=== PATIENT | female | born 1960 | race Caucasian/White ===

== ENCOUNTER → 2017-11-14 09:55 | Outpatient (CLI) | payer OTHER, MEDICAID, SELFPAY ==
--- NOTE | 2017-11-14 10:25 | DI.CT.S_ITS ---
PROCEDURE: CT CHEST ABD PEL W CON INDICATIONS: Restaging left breast cancer TECHNIQUE: After the administration of oral and intravenous contrast, 5 mm thick sections acquired from the lung apices to the symphysis. 5 mm coronal and sagittal reformats were performed, with additional 7 mm coronal MIP reformats through the lungs. For radiation dose reduction, the following was used: automated exposure control, adjustment of mA and/or kV according to patient size. COMPARISON: [facility], CT, CHEST/ABD/PEL WITH CONTRAST, 09/03/2017, 12:21. [facility], CT, CHEST/ABD/PEL WITH CONTRAST, 05/23/2017, 12:20. [facility], CT, CHEST/ABD/PEL WITH CONTRAST, 03/20/2017, 11:02. FINDINGS: Image quality: Excellent. CHEST: Lungs and pleura: No acute airspace opacities. Several small areas of linear stranding appear present at each lung base, but no pulmonary metastatic disease is found. No pleural effusions or pneumothorax. Central and peripheral airways appear patent and normal in caliber. Mediastinum: Heart size is normal. No pericardial effusion. No mediastinal or hilar adenopathy by size criteria. Thoracic aorta and central pulmonary arteries are normal in size. Esophagus is normal in caliber. No hiatal hernia. Chest wall: No axillary or supraclavicular adenopathy by size criteria. Thyroid gland appears normal where well visualized. Mild soft tissue prominence adjacent to the presumed surgical or biopsy clip at the left breast has diminished, and no additional suspected site of breast carcinoma is found. The soft tissue prominence measures 1.2 x 2.7 cm on the current study. ABDOMEN: Solid organs: Liver is normal in size and enhancement. Gallbladder contains multiple stones, filling the gallbladder lumen but without acute cholecystitis or biliary obstruction. Biliary system is non dilated. Pancreas enhances normally. Spleen is normal in size and enhancement. No adrenal nodules. Kidneys demonstrate normal size and enhancement, without hydronephrosis. Peritoneum and bowel: Bowel loops demonstrate normal wall thickness and caliber. No free fluid or air. Nodes and vessels: No mesenteric adenopathy by size criteria. The retroperitoneal adenopathy identified during CT scanning 09/03/17 remains but definitely diminished in size to a small degree along the para-aortic retroperitoneum. For example, the largest right periaortic node that previously measured 1.9 cm AP and 1.6 cm transverse, and now measures 1.6 cm AP and 1.3 cm transverse at the same areas. This pattern of improvement of adenopathy extends through the abdomen into the pelvis and along the left iliac node chain. No enlarging or new note is found. Aorta and inferior vena cava are normal in size. Miscellaneous: No ventral hernias. PELVIS: Genitourinary: Bladder wall thickness is normal. Miscellaneous: No inguinal hernias or adenopathy. Bones: No suspicious bony lesions. No vertebral body compression fractures. IMPRESSION: Definite interval improvement in mild adenopathy along the retroperitoneal lymph node chains extending into the pelvis, and along the iliac node chains. No new area of adenopathy has developed. No additional area of metastatic disease is suspected. Resolution of mild edema pattern surrounding an area of presumed mass with central biopsy clip within, left breast. Alternatively, the radiodensity seen could represent scarring. Dictated by: Chester Morales M.D. on 11/14/2017 at 12:53 Approved by: Chester Morales M.D. on 11/14/2017 at 13:01
== END ==
PROVIDERS: Family Provider Physician Assistant; PCP Physician Assistant; Visit Provider Internal Medicine Hematology & Oncology
DX: C50.912 Malignant neoplasm of unspecified site of left female breast (principal)
CPT/HCPCS: 71260; 74177; 77080; Q9967

== ENCOUNTER → 2017-11-21 09:42 | Outpatient (CLI) | payer OTHER, MEDICAID, SELFPAY ==
--- NOTE | 2017-11-21 09:44 | DI.MRI.S_ITS ---
BREAST MRI OF BOTH BREASTS : 11/21/2017 CLINICAL: Breast and endometrial cancer. Comparison is made to exams dated: 03/18/2017 breast MRI - [facility], 02/20/2017 mammogram, and 01/12/2016 mammogram - [facility]. Informed consent was obtained from the patient. Axial T1, T2, and pre and post contrast T1 images were obtained. There is a 2.4 cm x 2 cm x 1.2 cm irregular mass with a spiculated margin in the left breast at 6 o'clock middle depth. This abnormality is decreased in size. It enhances significantly less than on the previous examination. There is no abnormal enhancement, masses, or areas of distortion in the right breast. There is a new right sided portacatheter. Left axillary and axillary tail lymph nodes are significantly improved. IMPRESSION: KNOWN BIOPSY PROVEN MALIGNANCY 1. The 2.4 cm x 2 cm x 1.2 cm irregular mass in the left breast is a known biopsy positive for malignancy. It enhances significantly less and is slightly smaller than on the previous study consistent with positive response to treatment. 2. Left axillary and axillary tail lymph nodes are significantly improved. 3. No MRI evidence of right breast malignancy. This exam was interpreted at Station ID: [id number]. Electronically Signed By: Rush Cruz M.D. cj/:11/22/2017 12:16:40 copy to: Denise Braxton copy to: HEATHER MOMIN BI-RADS Category 6: Known biopsy proven malignancy [id number]
--- NOTE | 2018-01-27 11:24 | ONC.NAV ---
Description: T/C Activity: Left pt a message re: scheduling appt. with an oncologist as well as responding to her need to look over some of her insurance forms. Requested return call.
--- NOTE | 2018-01-28 12:56 | ONC.NAV ---
Description: T/C re: temporary transfer of care Activity: Called pt to discuss her questions re: changing from Medicaid to SSI/Healthcare exchange. Discussed coordination of her scheduling for her next Oncologist appointment, and explained that we can not take her [employer] insurance right now until our providers are fully credentialed, and that this [employer] BACKING STENCILER can assist with coordinating her to visit Dr. Shaw at [facility] for her surgery post-op provider appt. Explained also that we will call her as soon as Dr. Shaw is credentialed to accept her insurance here, and will then transfer her care back to us. She expressed understanding, and was okay with this plan.
== END ==
PROVIDERS: Family Provider Physician Assistant; PCP Physician Assistant; Visit Provider Internal Medicine Hematology & Oncology
DX: C50.912 Malignant neoplasm of unspecified site of left female breast (principal); C54.1 Malignant neoplasm of endometrium
CPT/HCPCS: 96523; A9579; C8908

== ENCOUNTER 2018-01-01 07:53 | Day surgery (SDC) | payer OTHER, MEDICAID, SELFPAY ==
[2017-12-17 10:57] VITALS: BMI 29.2
--- NOTE | 2018-01-01 | PATH_ITS ---
[facility] Accession Number: [id number] . 01 Material submitted: . PART A: LEFT AXILLARY CONTENTS PART B: LEFT BREAST MASS . 02 Diagnosis: A. Left Axillary Contents, Dissection: One of nine lymph nodes positive for metastatic carcinoma (06/25). . B. Left Breast Mass: Invasive carcinoma of the breast. Please see comment. . CAP CANCER CASE SUMMARY . Procedure: Left breast lumpectomy and axillary dissection following needle localization. Lymph node sampling: Axillary dissection (submitted as part A). Specimen Laterality: Left. . Tumor site: Tumor is present in the lower outer quadrant of the left breast (5 o'clock per the previous biopsy report ([facility] [id number])). Tumor size: 3.4 cm. Histologic type: Infiltrating ductal carcinoma. Histologic grade: Empire histologic score 9 of 9. Glandular/Tubular differentiation: Score 3 of 3. Nuclear Pleomorphism: Score 3 of 3. Mitotic Rate: Score 3 of 3. Overall Grade: Grade 3 of 3. Tumor focality: Unifocal. Ductal carcinoma in situ: Present. Size (Extent) of DCIS: Approximately 12 mm (slices 10, 11, and 12). Architectural patterns: Comedocarcinoma. Nuclear grade: High grade (3 of 3). Necrosis: Present. Lobular carcinoma in situ: Not identified. . Macroscopic and microscopic extent of tumor Skin: Not applicable. Nipple: Not applicable. Skeletal muscle: Not applicable. . Margins Invasive carcinoma: Anterior: 1 mm. Posterior: 11 mm. Superior: Greater than 10 mm. Inferior: 7 mm. Medial: Greater than 10 mm. Lateral: Greater than 10 mm. Ductal carcinoma in situ: Anterior: 8 mm. Posterior: 8 mm. Superior: Greater than 10 mm. Inferior: Greater than 10 mm. Medial: Greater than 10 mm. Lateral: Greater than 10 mm. . Lymph nodes Total number of lymph nodes examined: 9. Number of sentinel lymph nodes examined: 0. . Lymph Node Involvement: Number of lymph nodes with macrometastases: 1. Number of lymph nodes with micrometastases: Not applicable. Number of lymph nodes with isolated tumor cells: Not applicable. Extranodal Extension: Present over a region of 2 mm. Method of Evaluation of [place] Lymph Nodes: Not applicable. . . Treatment effect: Response to Presurgical Therapy Breast: Not definitively identified. Lymph nodes: Not definitively identified. . Lymph-vascular invasion: Not definitively identified. Dermal lymph-vascular invasion: Not applicable. Pathologic staging: AJCC, 8th ed., 2017 Primary tumor: pT2 Regional lymph nodes: pN1a . Additional pathologic findings: Specify: Perineural involvement present; changes consistent with previous instrumentation are present. . Ancillary studies: Performed on this patient's previous needle core biopsy ([facility], [id number]; 02/27/2017) and demonstrate the following by written report: Estrogen Receptor (ER) Status: Positive (10%, weak, 1+). Progesterone Receptor (PgR) Status: Positive (weak, 1+, 5%). HER2 (by immunohistochemistry): Negative (1+, faint cytoplasmic and membrane positivity in about 20% of cells). HER2 (ERBB2) (by in situ hybridization): Not applicable. MRV/01/06/2018 . 02 Comment: This patient's previous left breast needle core biopsy ( [facility] [id number]) demonstrates immunohistochemistry findings consistent with primary breast carcinoma (cdx2 and PAX8 negative, GATA3 positive) per [facility] report [id number]. The presence of a concurrent endometrial primary tumor is noted. . 02 Electronically signed: . Maxine Clayton MD, Pathologist NPI- [id number] . 01 Gross description: . (A) Received in formalin, labeled left axillary content, is a piece of gerardo-yellow, rubbery adipose tissue (8.0 x 6.0 x 2.2 cm) containing multiple possible lymph nodes (0.1 x 0.1 x 0.1 cm - 1.8 x 1.5 x 0.8 cm). Section code: (A1, A2) multiple intact lymph nodes; (A3-A5) one bisected lymph node in each cassette; (A6-A7) one lymph node, serially sectioned. (B) Received in formalin, labeled left breast mass, short superior, long lateral, wire anterior, is a piece of breast tissue (3.3 cm AP, 5.9 cm SI, 9.5 cm ML) with no overlying skin. The specimen is oriented with 2 black sutures (short - superior, long-lateral) and the wire is anterior. The specimen is serially sectioned ML into 28 slices with the medial and lateral resection margins as slices #1 and #28, respectively. A gerardo-white, solid, firm irregular mass (3.4 x 1.6 x 1.5 cm) is identified in slices #6-#15. The localization wire ends adjacent to the mass in slice #15. The mass is less than 0.1 cm from the anterior, 1.1 cm from the posterior, 1.9 cm from the superior, 0.7 cm from the inferior, 1.7 cm from the medial, and 4.4 cm from the lateral resection margins. A focally hemorrhagic area (1.1 x 1.0 x 0.6 cm) is located 0.3 cm from the mass within slices #8-#10. No biopsy marker is identified. The remaining breast tissue is fatty, with no other nodules, masses or lesions identified. Ink code: purple-anterior; yellow-posterior; black-superior; orange-inferior; green-medial; blue-lateral. Section code: (B1) medial resection margin, perpendicularly sectioned, sales representative graphic art; (B2) slice #4, bisected SI, superior half submitted; (B3-B4) slice #5, tissue adjacent to mass, bisected and entirely submitted SI; (B5) slice #6, bisected SI, inferior half submitted; (B6) slice #7, bisected SI, inferior half submitted; (B7) slice #8, bisected SI, inferior half submitted; (B8-B10) slice #9, trisected and entirely submitted SI; (B11-B12) slice # 10, trisected SI, inferior two-thirds submitted; (B13-B14) slice #11, trisected SI, inferior two-thirds submitted; (B15) slice #12, sales representative graphic art; (B16) slice #13, sales representative graphic art, (B17-B18) slice #14,trisected SI, superior two-thirds submitted; (B19) slice #15, sales representative graphic art; (B20-B22) slice #16, tissue adjacent to mass, trisected and entirely submitted SI; (B23) slice # 22, sales representative graphic art; (B24) lateral resection margin, perpendicularly sectioned, sales representative graphic art. Note: Approximate total fixation time in formalin - 69 hours 30 minutes, calculated using the collection day of 01/01/2018 with no collection time given. (JM:mlo [id number]) /OZO . 02 Pathologist provided ICD-10: C50.912 . 02 CPT . 347884, [id number] Performed at: 01 [facility] [address] [place] [address], [place], [place] [id number] MD Martell Dorsey MD Phone: [phone] Performed at: 02 [facility] [address] [place], [place] [id number] MD Mane Moore MD Phone: [phone]
--- NOTE | 2018-01-01 07:32 | DI.MG.S_ITS ---
MAMMOGRAPHY GUIDED WIRE LOCALIZATION LEFT BREAST WITH POST MAMMOGRAPHIC IMAGING AND RADIOGRAPHIC SPECIMEN IMAGIN01/01/2018 CLINICAL: Left breast cancer. Correlation is made to exams dated: 11/21/2017 breast MRI, 03/18/2017 breast MRI - [facility], 02/27/2017 ultrasound biopsy, and 02/20/2017 mammogram - [facility]. A wire localization using mammography guidance was performed for the palpable oval mass located in the left breast at 6 o'clock middle depth. This was described on the previous mammography report. The skin was prepped in the usual manner. Local anesthetic was administered to the access site. The localization was approached from the lateral aspect. A J-hook wire was inserted adjacent to the marker under mammography guidance. A sterile dressing was applied to the access site. Post placement mammographic imaging demonstrates the tip demarcates the boundaries adjacent to the marker. IMPRESSION: WIRE LOCALIZATION Wire localization for the mass in the left breast at 6 o'clock middle depth was successful. The imaged specimen includes the lesion, a biopsy clip, and the distal portion of the localization wire. A specimen radiograph is recommended. This exam was interpreted at Station ID: [id number]. Chester Morales M.D. [facility]/:01/01/2018 17:19:46 copy to: Denise Braxton copy to: HEATHER SUNSHINE
--- NOTE | 2018-01-01 07:32 | DI.MG.S_ITS ---
SPECIMEN LEFT BREAST: 01/01/2018 CLINICAL: Breast specimen. Correlation is made to exam dated: 01/01/2018 [facility]. A surgical specimen was imaged for the concerning oval mass located in the left breast at 6 o'clock middle depth. This was described on the previous mammography report. IMPRESSION: SPECIMEN The imaged specimen includes the lesion, a biopsy clip, and the distal portion of the localization wire. Waiting for pathology results. A final report will be issued when these become available. This exam was interpreted at Station ID: [id number]. Chester Morales M.D. tracy/maria dolores:01/01/2018 17:21:17 copy to: Denise Braxton copy to: HEATHER SUNSHINE
--- NOTE | 2018-01-01 08:16 | SUR.PREOP ---
PT LEFT SURGICAL AREA TO RADIOLOGY IN STABLE CONDITION AT THIS TIME.
--- NOTE | 2018-01-01 09:08 | SUR.PREOP ---
PT RETURNED FROM RADIOLOGY AT THIS TIME. PT IN STABLE CONDITION. CUP OVER NEEDLE LOC SITE.
[2018-01-01 09:19] VITALS: BP 129/85; PULSE 79; RESP 15; TEMP 36.3; O2SAT 100; BMI 31.0
--- NOTE | 2018-01-01 09:37 | SUR.PREOP ---
PT POWER PORT ACCESSED ON RIGHT CHEST PER POLICY. GOOD BLOOD RETURN AND EASILY FLUSHED. PT TOLERATED WELL. FLUIDS RUNNING AT THIS TIME WITHOUT ANY DIFFICULTLY. NEEDLE 20G x 0.75 IN.
[2018-01-01] MEDS: LACTATED RINGERS 1,000 ML 42 ML IV ×2 (09:52→11:19)
--- NOTE | 2018-01-01 10:21 | PM.PREOP ---
Pre-operative Note Interval Note Pre-op Check: Yes History & Physical Reviewed by Physician Changes: No
--- NOTE | 2018-01-01 11:11 | SUR.OPER ---
Supine on padded OR bed, head on pillow, arms secured on padded arm boards at <90 degrees abduction, legs uncrossed, safety belt at thigh, tape over blanket over lower legs.
[2018-01-01] MEDS: LIDOCAINE 1% W/EPI INJ 20 ML INJ (11:17)
[2018-01-01] MEDS: BUPIVACAINE 0.5% (PF) 30 ML VIAL INJ (11:18)
--- NOTE | 2018-01-01 11:42 | P.OP_ITS ---
Operative Date/Time/Diagnoses Date of procedure: 01/01/18 Time of procedure: 11:37 Pre-op diagnosis: Biopsy-proven locally advanced left breast cancer Post-op diagnosis: same Procedure & Clinicians Procedure: Left breast lumpectomy and axillary dissection following needle localization Same procedure as scheduled: Yes Indications: Locally advanced breast cancer with a biopsy-positive left axillary node in the setting of advanced endometrial cancer Surgeon: Vivian Braxton Click Yes if Unassisted: Yes Anesthesia Type: General (Ahsaei) and Local Operative Notes Findings: 1. Multiple palpably enlarged axillary nodes in levels 1, 2, and 3 of the left axilla 2. Mass and clip contained centrally within the specimen. 3. A very tiny amount of tissue covers the mass posteriorly. There is a very narrow plane between the posterior edge of the mass and the pectoralis muscle Closure Type: primary Specimen(s): other (1. Left axillary contents, 2. left breast mass) Estimated Blood Loss (mL): 20 Procedure in detail: After obtaining informed consent, the patient was brought to the operating room and placed in the supine position on the operating table. Following successful induction of general endotracheal anesthesia, appropriate padding of all bony prominences, and placement of appropriate monitors, the left breast and axilla were prepped and draped in a standard surgical fashion. A timeout was held per SCOAP protocol. Following injection of mixture of local anesthetics into the axillary fold on the left side, an incision was created and carried down through the skin and subcutaneous tissue to enter the axillary fat pad below. The axillary node packet was then dissected free from underlying muscle and overlying skin. This was carried superiorly to the axillary vein but the vein was not skeletonized. All afferent and efferent lymphatics and vasculature were addressed with clips prior to division. The limit of dissection anteriorly was the pectoralis muscle and posteriorly was the latissimus muscle. All palpably enlarged nodes were included within the specimen. The wound was checked for hemostasis and irrigated with warm water. It was closed in 2 layers with Vicryl and Monocryl suture. We continued with lumpectomy on the left side. A curvilinear incision was created to include the wire on the left side. Using traction and counter- traction, the mass and localizing wire carefully dissected free from the overlying skin, underlying muscle, and surrounding breast tissue. The mass was delivered into the field and marked appropriately. It was sent for specimen x- ray. The wound was checked for hemostasis and irrigated with water. The radiologist called back into the room noting that the specimen x-ray contained the wire clip and mass. The wound was checked once again for hemostasis. It was irrigated copiously with warm water and aspirated free of all fluid. The wound was checked once again for hemostasis and then closed in 2 layers with Vicryl Monocryl suture. Dermabond was applied to the skin incisions. Fluffs and a breast binder were applied. The patient tolerated the procedure very well. She was allowed awaken from anesthesia and taken to the post-anesthesia care unit in good condition. Complications: none Condition: stable Disposition: PACU Plan for aftercare: 1. Discharge to home 2. Follow up with me in 2 weeks
[2018-01-01 11:50] VITALS: BP 114/77; PULSE 79; RESP 18; TEMP 36.2; O2SAT 98
[2018-01-01 11:55] VITALS: BP 122/74; PULSE 95; RESP 18; O2SAT 95
[2018-01-01 12:00] VITALS: BP 108/71; PULSE 93; RESP 12; O2SAT 95
[2018-01-01] MEDS: OXYCODONE/ACETAMINOPHEN 5/325 TABLET 1 TAB PO ×2 (12:02→12:58)
[2018-01-01 12:11] VITALS: BP 127/73; PULSE 94; RESP 17; TEMP 35.9; O2SAT 95
--- NOTE | 2018-01-01 13:02 | SUR.PHASEII ---
Addendum entered by Sara Betancur R.N. 01/01/18 13:16: Flushed Port per policy prior to de-access. Flushed easily, pt tolerated well. Original Note: Pt's Port-A-Cath deaccessed, no issues, bandage applied.
[2018-01-01 13:04] VITALS: BP 127/83; PULSE 82; RESP 16; TEMP 36.1; O2SAT 99
--- NOTE | 2018-02-04 14:36 | PM.HP.1 ---
History of Present Illness Date Patient Seen: 01/01/18 Time Patient Seen: 10:36 Chief complaint: needle loc axillary dissection [id number] Narrative: Very pleasant 58-year-old lady admitted today with left breast cancer. She is scheduled to undergo a left breast lumpectomy after needle localization. Because she had locally advanced disease she will require an axillary dissection. We have discussed all of this prior to today's planned procedure. She reports she is feeling reasonably well today. She has no complaints. Patient History Medical History Anxiety (Acute) Cataracts, bilateral (Acute) Cholelithiasis (Acute) Chronic headaches (Acute) Compression fracture of body of thoracic vertebra (Acute) Hypertension (Acute) Osteopenia (Acute) Second hand smoke exposure (Acute) Surgical History Status post hysterectomy with oophorectomy (04/24/17) Family & Social History Family History: Reviewed 02/04/18 by Vivian Braxton MD Social History: household members significant other Meds Home Medications Medication Instructions Recorded Confirmed Type [COQ-10] 100 mg PO Q DAY #0 03/14/17 01/01/18 History [TUMERIC] Q DAY #0 03/14/17 History magnesium 200 mg PO Q DAY #0 03/14/17 01/01/18 History multivitamin [Multiple Vitamins] 1 tab PO QDAY #0 03/14/17 01/01/18 History [PAPAYA ENZYME] PO QDAY #0 04/16/17 History [TURKEY TAIL MUSHROOM] PO QDAY #0 04/16/17 History acetaminophen [Tylenol] 650 mg PO Q6H PRN #0 07/18/17 01/01/18 History ibuprofen 400 mg PO PRN PRN #0 07/18/17 12/17/17 History lisinopril 20 mg tablet 20 mg PO QDAY #90 tab 11/29/17 01/01/18 Rx letrozole 2.5 mg tablet 2.5 mg PO DAILY 12/02/17 01/01/18 History probiotic PO DAILY 12/02/17 12/02/17 History acetaminophen [Tylenol Extra 500 mg PO Q6H PRN 12/17/17 12/17/17 History Strength] levothyroxine [Synthroid] 150 mcg PO DAILY 12/27/17 01/01/18 History lorazepam 0.5 mg PO Q OTHER DAY PRN 12/27/17 01/01/18 History Allergies Allergy/AdvReac Type Severity Reaction Status Date / Time No Known Drug Allergies Allergy Verified 01/01/18 08:12 Review of Systems Review of Systems All systems reviewed & are unremarkable except as noted in HPI and below Exam Vital Signs (past 8 hours): Oxygen Delivery Method Room Air Narrative Exam Narrative: Very pleasant lady in no obvious distress HEENT: Normocephalic and atraumatic, pupils equal round reactive to light accommodation with anicteric sclera Lungs: Clear bilaterally Heart: Regular rate and rhythm without murmur or gallop Breast: Fairly symmetrical bilaterally. There is a wire covered with a cup protruding from her left breast Abdomen: Soft, nontender, active bowel sounds. Incision is healing well. Extremities: Warm and well perfused without edema Assessment & Plan Plan: Assessment/Plan Narrative: Very pleasant lady with locally advanced left breast cancer in the setting of a very aggressive metastatic endometrial cancer. We discussed the risks and benefits of left breast lumpectomy and axillary dissection and she has expressed an understanding of the procedure and a desire to complete it today
== END 2018-01-01 13:22 ==
LOC: OR 08:00
PROVIDERS: PCP Family Medicine; Visit Provider Surgery
PROC: (CPT 19302; principal; 2018-01-01 10:00)
DX: C50.912 Malignant neoplasm of unspecified site of left female breast (principal); Z17.0 Estrogen receptor positive status [ER+]; F41.9 Anxiety disorder, unspecified; I10 Essential (primary) hypertension
CPT/HCPCS: 19302; 19281; 76098; J1100; J2405; J2704; J3010

== ENCOUNTER → 2018-03-18 10:37 | Outpatient (CLI) | payer OTHER, MEDICAID, SELFPAY ==
[2018-03-18 11:29] LABS: Add Manual Diff / Slide Review NO; Basophils Percent Auto 0.3 % (0-2); Eosinophils Percent Auto 3.4 % (2-4); Hematocrit 37.4 % (36-46); Lymphocytes Percent Auto 14.3 % (25-40); Mean Corpuscular HGB Conc 34.8 % (30-36); Mean Corpuscular Hemoglobin 31.9 PG (26-34); Mean Corpuscular Volume 91.7 fL (80-100); Monocytes Percent Auto 9.9 % (3-14); Neutrophils Absolute Auto 3800 /uL (3000-5900); Neutrophils Percent Auto 72.1 % (50-75); Platelet Count 209 X10^3/uL (150-400); Red Blood Cell Count 4.08 X10^6/uL (4.0-5.2); Red Cell Distribution Width 12.3 % (11.6-14.8); White Blood Cell Count 5.2 X10^3/uL (4.5-11.0)
[2018-03-18 11:33] LABS: Alanine Aminotransferase 33 IU/L (9-52); Albumin 4.6 g/dL (3.5-5.0); Albumin Globulin Ratio 1.4 (1.0-2.8); Alkaline Phosphatase 76 U/L (38-126); Aspartate Aminotransferase 24 IU/L (14-36); BUN Creatinine Ratio 27.8 (6-22); Bilirubin Total 0.6 mg/dL (0.2-1.3); Blood Urea Nitrogen 25 mg/dL (7-17); Calcium 10.2 mg/dL (8.4-10.2); Carbon Dioxide 32 mmol/L (22-32); Chloride 102 mmol/L (98-107); Cholesterol 302 mg/dL (140-199); Estimated Glomerular Filt Rate > 60.0 mL/min (>60); Globulin 3.2 g/dL (1.7-4.1); Glucose 93 mg/dL (70-100); HDL Cholesterol 46 mg/dL (40-60); HEMOLYSIS < 15 (0-50); LDL Cholesterol Calculated 197 mg/dL (<100); Potassium 4.5 mmol/L (3.4-5.1); Sodium 144 mmol/L (137-145); Total Protein 7.8 g/dL (6.3-8.2); Triglycerides 294 mg/dL (35-150)
[2018-03-18 12:35] LABS: TSH w/ Reflex to FT4 1.01 uIU/mL (0.47-4.68)
--- NOTE | 2018-03-31 14:57 | ONC.NAV ---
Description: T/C re: transfer plan Activity: Called and left pt a voicemail re: what her plan is re: transferring care back to [place]. Dr. Gonzalez is credentialed with her insurance, however Dr. Shaw is not. Requested a return call.
== END ==
PROVIDERS: PCP Family Medicine; Visit Provider Nurse Practitioner Family
DX: I10 Essential (primary) hypertension (principal)
CPT/HCPCS: 36415; 80053; 80061; 84443; 85025

== ENCOUNTER → 2018-06-23 11:33 | Outpatient (CLI) | payer OTHER, MEDICAID, SELFPAY ==
--- NOTE | 2018-06-23 12:50 | DI.CT.S_ITS ---
PROCEDURE: CT CHEST ABD PEL W CON INDICATIONS: surveillance. History of metastatic endometrial carcinoma. Breast cancer. TECHNIQUE: After the administration of oral and intravenous contrast, 5 mm thick sections acquired from the lung apices to the symphysis. 5 mm coronal and sagittal reformats were performed, with additional 7 mm coronal MIP reformats through the lungs. For radiation dose reduction, the following was used: automated exposure control, adjustment of mA and/or kV according to patient size. COMPARISON: [facility], CT, CT CHEST ABD PEL W CON, 11/14/2017, 10:59. [facility], CT, CT CHEST ABDOMEN PELVIS WITH CONTRAST, 03/07/2018, 15:42. FINDINGS: Image quality: Excellent. CHEST: Lungs and pleura: No acute airspace opacities. No pleural effusions or pneumothorax. Central and peripheral airways appear patent and normal in caliber. Mediastinum: Heart size is normal. No pericardial effusion. No mediastinal or hilar adenopathy by size criteria. Thoracic aorta and central pulmonary arteries are normal in size. Esophagus is normal in caliber. No hiatal hernia. Chest wall: Right chest wall Port-A-Cath tip is in SVC. Postsurgical changes are noted in the left axilla and left breast region. Previously described 2.4 x 5.3 cm old old seroma/hematoma at left breast lumpectomy site now measures 2.7 x 4 cm in size. Left breast skin thickening is also seen. Previously described 8mm left axillary lymph node is unchanged in size and appearance. Small amount of hematoma/seroma in left axilla adjacent to surgical clips are again seen and unchanged. No new axillary or supraclavicular adenopathy by size criteria. Thyroid gland is unremarkable. ABDOMEN: Solid organs: Liver is normal in size and enhancement. There is mild hepatic steatosis. Gallbladder contains multiple calcified stones.. Biliary system is non dilated. Pancreas enhances normally. Spleen is normal in size and enhancement. No adrenal nodules. Kidneys demonstrate normal size and enhancement, without hydronephrosis. Peritoneum and bowel: Bowel loops demonstrate normal wall thickness and caliber. No free fluid or air. Sigmoid diverticulosis is seen, no evidence of acute diverticulitis. Nodes and vessels: No retroperitoneal or mesenteric adenopathy by size criteria. A few small retroperitoneal lymph nodes are seen and measures up to 6-7 mm in size in right retroperitoneal space. 7 mm left iliac lymph node is also seen. Aorta and inferior vena cava are normal in size. Miscellaneous: No ventral hernias. PELVIS: Genitourinary: Bladder wall thickness is normal. Miscellaneous: No inguinal hernias or adenopathy. Small lymph nodes are seen in bilateral inguinal region measures up to 8 mm in short axis diameter. Previously described right common iliac lymph node measures 10-11 mm in maximum short axis diameter now measures up to 7 mm in size. Bones: No suspicious bony lesions. No vertebral body compression fractures. IMPRESSION: 1. Interval further decrease in size of patient's known mildly enlarged lymph nodes in retroperitoneum and pelvis as described above. 2. Interval decrease in size of patient's known seroma/hematoma in left breast lumpectomy site. Stable small left axillary lymph node and post surgical changes in left axilla. Dictated by: Kd Levine M.D. on 06/23/2018 at 14:09 Approved by: Kd Levine M.D. on 06/23/2018 at 16:33
== END ==
PROVIDERS: Family Provider Internal Medicine Hematology & Oncology; Visit Provider Internal Medicine Hematology & Oncology
DX: C50.912 Malignant neoplasm of unspecified site of left female breast (principal); C54.1 Malignant neoplasm of endometrium; C78.00 Secondary malignant neoplasm of unspecified lung; R59.0 Localized enlarged lymph nodes; N64.89 Other specified disorders of breast
CPT/HCPCS: 36592; 71260; 74177; 80053; Q9967

== ENCOUNTER → 2018-08-11 11:09 | Outpatient (CLI) | payer OTHER, MEDICAID, SELFPAY ==
--- NOTE | 2018-08-11 11:14 | DI.US.S_ITS ---
ULTRASOUND OF LEFT BREAST: 08/11/2018 CLINICAL: Focal left breast tenderness inferior and lateral to lumpectomy site for 1 month. Comparison is made to exams dated: 01/01/2018 specimen, 01/01/2018 localization, 11/21/2017 breast MRI, 03/18/2017 breast MRI - [facility], 02/27/2017 ultrasound biopsy, and 02/20/2017 mammogram - [facility]. Ultrasound of the left breast was performed on the area of interest. Webster scale images of the real-time examination were reviewed. IMPRESSION: NEGATIVE There is no sonographic evidence of malignancy. There is no sonographic abnormality seen in the left breast to correspond with the pain, however, clinical followup is recommended. Additionally, mammogram is recomended when the patient can tolerate compression. This exam was interpreted at Station ID: [id number]. Electronically Signed By: Denise Deleon M.D. lk/:08/11/2018 17:27:47 copy to: [facility] SUNSHINE letter sent: Clinical Evaluation Ultrasound BI-RADS: 1 Negative
--- NOTE | 2018-08-11 11:14 | DI.RAD.S_ITS ---
PROCEDURE: XR RIBS LT 2V INDICATIONS: RIB PAIN TECHNIQUE: 2 views of the left ribs were acquired. COMPARISON: None. FINDINGS: Surgical changes and devices: Numerous surgical clips projecting left axilla Bones and chest wall: No fractures or dislocations. No suspicious bony lesions. Overlying soft tissues appear unremarkable. Mild acromioclavicular and glenohumeral joint degeneration. Lungs and pleura: The visualized lung appears clear. No pleural effusions or pneumothorax are visible. IMPRESSION: No fracture Dictated by: Jack Kumari M.D. on 08/11/2018 at 12:25 Approved by: Jack Kumari M.D. on 08/11/2018 at 12:27
== END ==
PROVIDERS: Family Provider Internal Medicine Hematology & Oncology; Visit Provider Surgery
DX: C50.912 Malignant neoplasm of unspecified site of left female breast (principal); R07.81 Pleurodynia
CPT/HCPCS: 71100; 76642

== ENCOUNTER → 2018-09-25 09:55 | Outpatient (CLI) | payer OTHER, MEDICAID, SELFPAY ==
--- NOTE | 2018-09-25 10:14 | DI.CT.S_ITS ---
PROCEDURE: CT CHEST ABD PEL W CON INDICATIONS: surveillance TECHNIQUE: After the administration of oral and intravenous contrast, 5 mm thick sections acquired from the lung apices to the symphysis. 5 mm coronal and sagittal reformats were performed, with additional 7 mm coronal MIP reformats through the lungs. For radiation dose reduction, the following was used: automated exposure control, adjustment of mA and/or kV according to patient size. COMPARISON: [facility], CT, CT CHEST ABD PEL W CON, 06/23/2018, 12:37. FINDINGS: Image quality: Excellent. CHEST: Lungs and pleura: No acute airspace opacities. No pleural effusions or pneumothorax. Central and peripheral airways appear patent and normal in caliber. Mediastinum: Heart size is normal. No pericardial effusion. No mediastinal or hilar adenopathy by size criteria. Thoracic aorta and central pulmonary arteries are normal in size. Esophagus is normal in caliber. No hiatal hernia. Chest wall: Right chest wall Port-A-Cath tip is in SVC unchanged from previous study. Post surgical changes are again noted in left axilla and left breast region. 2.8 x 4 cm seroma/hematoma at left breast lumpectomy site remains unchanged. Left breast skin thickening is again seen and unchanged. A patient's known 8mm left axillary lymph node now measures 7 mm in short axis diameter and is not significantly changed. No new axillary or supraclavicular lymphadenopathy is seen by size criteria. Thyroid gland is unremarkable. ABDOMEN: Solid organs: Liver is normal in size and enhancement. Gallbladder contains multiple calcified stones.. Biliary system is non dilated. Pancreas enhances normally. Spleen is normal in size and enhancement. No adrenal nodules. Kidneys demonstrate normal size and enhancement, without hydronephrosis. Peritoneum and bowel: Bowel loops demonstrate normal wall thickness and caliber. No free fluid or air. Nodes and vessels: No retroperitoneal or mesenteric adenopathy by size criteria. Aorta and inferior vena cava are normal in size. Miscellaneous: No ventral hernias. PELVIS: Genitourinary: Mild diffuse bladder wall thickening is seen, no discrete bladder wall mass is noted. Patient is status post hysterectomy. Miscellaneous: No inguinal hernias or adenopathy. Small lymph nodes in bilateral inguinal region are again seen, measures up to 7 mm in short axis diameter on the current study. Previously described 7 mm right common iliac lymph node is unchanged. Bones: No suspicious bony lesions. No vertebral body compression fractures. IMPRESSION: 1. No significant changes from previous study. Stable postsurgical changes in left chest wall and left axilla. Stable old seroma/hematoma in left breast lumpectomy site. Stable small left axillary lymph node. 2. Stable subcentimeter lymph nodes in retroperitoneum and pelvis. Dictated by: Kd Levine M.D. on 09/25/2018 at 12:27 Approved by: Kd Levine M.D. on 09/25/2018 at 12:37
== END ==
PROVIDERS: PCP Student in an Organized Health Care Education/Training Program; Visit Provider Internal Medicine Hematology & Oncology
DX: C34.90 Malignant neoplasm of unspecified part of unspecified bronchus or lung (principal); C54.1 Malignant neoplasm of endometrium
CPT/HCPCS: 71260; 74177; Q9967

== ENCOUNTER → 2018-12-29 09:53 | Outpatient (CLI) | payer OTHER, MEDICAID, SELFPAY ==
--- NOTE | 2018-12-29 10:26 | DI.CT.S_ITS ---
PROCEDURE: CT CHEST ABD PEL W CON INDICATIONS: Surveillance breast and endometrial cancer TECHNIQUE: After the administration of oral and intravenous contrast, 5 mm thick sections acquired from the lung apices to the symphysis. 5 mm coronal and sagittal reformats were performed, with additional 7 mm coronal MIP reformats through the lungs. For radiation dose reduction, the following was used: automated exposure control, adjustment of mA and/or kV according to patient size. COMPARISON: [facility], CT, CT CHEST ABD PEL W CON, 09/25/2018, 11:14. FINDINGS: Image quality: Excellent. CHEST: Lungs and pleura: Biapical scarring is seen. 4-5 mm nodular density in lateral aspect of left lower lobe is seen, not definitely noted on previous study series 2 image 187. 4 mm nodular density in anterior aspect of right middle lobe near right lung base is also noted not definitely seen on previous study series 2 image 202. No acute airspace opacities. No pleural effusions or pneumothorax. Central and peripheral airways appear patent and normal in caliber. Mediastinum: Heart size is normal. No pericardial effusion. No mediastinal or hilar adenopathy by size criteria. Thoracic aorta and central pulmonary arteries are normal in size. Esophagus is normal in caliber. No hiatal hernia. Chest wall: Right chest wall Port-A-Cath tip is in the SVC. Postsurgical changes from left breast lumpectomy with seroma/organized hematoma in left breast is again seen, now measures 4.3 x 3 cm in size, slightly increased in size compared to 2.8 x 4 cm on previous study. No axillary or supraclavicular adenopathy by size criteria. Previously described a 7 mm left axillary lymph node is grossly unchanged in size and appearance. Thyroid gland is within normal limits. ABDOMEN: Solid organs: Liver is normal in size and enhancement. Gallbladder contains multiple calcified stones unchanged from prior study.. Biliary system is non dilated. Pancreas enhances normally. Spleen is normal in size and enhancement. No adrenal nodules. Kidneys demonstrate normal size and enhancement, without hydronephrosis. Peritoneum and bowel: Bowel loops demonstrate normal wall thickness and caliber. No free fluid or air. Nodes and vessels: No retroperitoneal or mesenteric adenopathy by size criteria. Aorta and inferior vena cava are normal in size. Miscellaneous: No ventral hernias. PELVIS: Genitourinary: Bladder wall thickness is normal. Miscellaneous: No inguinal hernias or adenopathy. Bones: No suspicious bony lesions. No vertebral body compression fractures. IMPRESSION: 1. 4-5 mm nodular densities are seen in bilateral lower lung mccullough as described above, not definitively seen on previous CT study. Metastatic pulmonary nodules cannot be excluded. Suggest CT followup in 3-6 month. Biapical scarring. No pleural effusion or pneumothorax. Airways patent. 2. No lymphadenopathy is seen in chest, abdomen or pelvis by size criteria. 3. Interval slight increase in size of patient's known seroma/hematoma in the left breast from prior left breast lumpectomy. Dictated by: Kd Levine M.D. on 12/29/2018 at 15:29 Approved by: Kd Levine M.D. on 12/29/2018 at 15:36
== END ==
PROVIDERS: PCP Student in an Organized Health Care Education/Training Program; Visit Provider Internal Medicine Hematology & Oncology
DX: C50.912 Malignant neoplasm of unspecified site of left female breast (principal); C54.1 Malignant neoplasm of endometrium
CPT/HCPCS: 71260; 74177; Q9967

== ENCOUNTER → 2019-03-07 12:51 | Outpatient (CLI) | payer OTHER, MEDICAID, SELFPAY ==
--- NOTE | 2019-03-07 12:53 | DI.MG.S_ITS ---
BILATERAL DIGITAL SCREENING MAMMOGRAM 3D/2D WITH CAD: 03/07/2019 CLINICAL: Routine screening. Personal history of left breast cancer. Family history of breast cancer. Comparison is made to exams dated: 02/20/2017 mammogram, 01/12/2016 mammogram, and 07/21/2014 mammogram - [facility]. There are scattered fibroglandular elements in both breasts. Current study was also evaluated with a Computer Aided Detection (CAD) system. There are benign post operative findings in the left breast. No significant masses, calcifications, or other findings are seen in either breast. There has been no significant interval change. IMPRESSION: There is no mammographic evidence of malignancy. A 1 year screening mammogram is recommended. This exam was interpreted at Station ID: [id number]. NOTE: For mammograms, a report in lay terms will be sent to the patient. Approximately 15% of breast malignancies will not be visualized mammographically. In the management of a palpable breast mass, a negative mammogram must not discourage biopsy of a clinically suspicious lesion. Electronically Signed By: Denise huerta/maria dolores:03/09/2019 10:34:06 copy to: HEATH[facility] SUNSHINE letter sent: Normal Exam ACR BI-RADS Category 2: Benign Finding(s) 3342F
== END ==
PROVIDERS: Visit Provider Radiology Radiation Oncology
DX: Z12.31 Encounter for screening mammogram for malignant neoplasm of breast (principal); Z85.3 Personal history of malignant neoplasm of breast; Z80.3 Family history of malignant neoplasm of breast
CPT/HCPCS: 77063; 77067

== ENCOUNTER → 2019-03-30 10:48 | Outpatient (CLI) | payer OTHER, MEDICAID, SELFPAY ==
--- NOTE | 2019-03-30 11:59 | DI.CT.S_ITS ---
PROCEDURE: CT CHEST ABD PEL W CON INDICATIONS: BREAST CANCER, ENDOMET CA TECHNIQUE: After the administration of oral and intravenous contrast, 5 mm thick sections acquired from the lung apices to the symphysis. 5 mm coronal and sagittal reformats were performed, with additional 7 mm coronal MIP reformats through the lungs. For radiation dose reduction, the following was used: automated exposure control, adjustment of mA and/or kV according to patient size. COMPARISON: [facility], CT, CT CHEST ABD PEL W CON, 12/29/2018, 11:05. 03/07/2018, 12/29/2018. FINDINGS: Image quality: Excellent. CHEST: Lungs and pleura: A few scattered pulmonary nodules are stable since 12/29/2018. For example: -Right middle lobe, 4 mm, (7/189). -Left lower lobe, 4 mm, (7/175). No new or enlarging pulmonary nodules. Numerous pulmonary nodules were present on the CT 05/23/2017. No mass. No acute airspace opacities. No pleural effusions or pneumothorax. Central and peripheral airways appear patent and normal in caliber. Mediastinum: Heart size is normal. No pericardial effusion. No mediastinal or hilar adenopathy by size criteria. Thoracic aorta and central pulmonary arteries are normal in size. Esophagus is normal in caliber. No hiatal hernia. Chest wall: Similar small left breast neuroma measuring 4 cm, (2/33). Left axillary clips and scarring are unchanged. No axillary or supraclavicular adenopathy by size criteria. Thyroid gland is unremarkable. Right-sided port with the catheter tip in the upper SVC, unchanged. ABDOMEN: Solid organs: Liver is normal in size and enhancement. Gallbladder is nondistended. Multiple partially calcified gallstones. Biliary system is non dilated. Pancreas enhances normally. Spleen is normal in size and enhancement. No adrenal nodules. Kidneys demonstrate normal size and enhancement, without hydronephrosis. Peritoneum and bowel: Bowel loops demonstrate normal wall thickness and caliber. Mild diverticulosis. The apex is normal. No free fluid or air. Nodes and vessels: No retroperitoneal or mesenteric adenopathy by size criteria. No peritoneal nodularity. Aorta and inferior vena cava are normal in size. Miscellaneous: No ventral hernias. Lower, wall scar. PELVIS: Genitourinary: Bladder is unremarkable. The uterus is surgically absent. Miscellaneous: No inguinal hernias or adenopathy. Bones: No suspicious bony lesions. T9 compression fracture is unchanged. IMPRESSION: 1. A few small pulmonary nodules are stable. 2. No suspicious adenopathy. 3. No metastatic disease identified in the abdomen or pelvis. Dictated by: Mu Guevara M.D. on 03/30/2019 at 13:01 Approved by: Mu Guevara M.D. on 03/30/2019 at 13:17
== END ==
PROVIDERS: PCP Student in an Organized Health Care Education/Training Program; Visit Provider Internal Medicine Hematology & Oncology
DX: C50.912 Malignant neoplasm of unspecified site of left female breast (principal); C54.1 Malignant neoplasm of endometrium; R91.8 Other nonspecific abnormal finding of lung field
CPT/HCPCS: 71260; 74177; Q9967

== ENCOUNTER → 2019-07-13 13:38 | Outpatient (CLI) | payer OTHER, MEDICAID, SELFPAY ==
--- NOTE | 2019-07-13 13:57 | DI.CT.S_ITS ---
PROCEDURE: CT CHEST ABD PEL W CON INDICATIONS: breast ca, endometrium ca TECHNIQUE: After the administration of oral and intravenous contrast, 5 mm thick sections acquired from the lung apices to the symphysis. 5 mm coronal and sagittal reformats were performed, with additional 7 mm coronal MIP reformats through the lungs. For radiation dose reduction, the following was used: automated exposure control, adjustment of mA and/or kV according to patient size. COMPARISON: [facility], CT, CT CHEST ABD PEL W CON, 03/30/2019, 11:44. FINDINGS: Image quality: Excellent. CHEST: Lungs and pleura: No acute airspace opacities. No pleural effusions or pneumothorax. Central and peripheral airways appear patent and normal in caliber. Bilateral pulmonary nodules are unchanged compared to prior exam. No new nodules are identified. Mediastinum: Heart size is normal. No pericardial effusion. No mediastinal or hilar adenopathy by size criteria. Thoracic aorta and central pulmonary arteries are normal in size. Esophagus is normal in caliber. No hiatal hernia. Chest wall: No axillary or supraclavicular adenopathy by size criteria. Thyroid gland is unremarkable. Left breast mass is unremarkable. ABDOMEN: Solid organs: Liver is minimally prominent with steatosis. Gallbladder demonstrates multiple stones and sludge without wall thickening, unchanged. Biliary system is non dilated. Pancreas enhances normally. Spleen is normal in size and enhancement. No adrenal nodules. Kidneys demonstrate normal size and enhancement, without hydronephrosis. Peritoneum and bowel: Bowel loops demonstrate normal wall thickness and caliber. No free fluid or air. Scattered diverticula are present. Nodes and vessels: No retroperitoneal or mesenteric adenopathy by size criteria. Aorta and inferior vena cava are normal in size. Miscellaneous: No ventral hernias. PELVIS: Genitourinary: Bladder wall thickness is normal. Uterus has been removed. Miscellaneous: No inguinal hernias or adenopathy. Bones: No suspicious bony lesions. No vertebral body compression fractures. IMPRESSION: 1. Stable appearance of sub-centimeter bilateral pulmonary nodules. No new nodules are identified. 2. Stable left breast mass. 3. No evidence of metastatic disease within the abdomen or pelvis. Dictated by: Allison Tovar M.D. on 07/13/2019 at 15:13 Approved by: Allison Tovar M.D. on 07/13/2019 at 15:22
== END ==
PROVIDERS: PCP Student in an Organized Health Care Education/Training Program; Visit Provider Internal Medicine Hematology & Oncology
DX: C50.912 Malignant neoplasm of unspecified site of left female breast (principal); C54.1 Malignant neoplasm of endometrium; R91.8 Other nonspecific abnormal finding of lung field; K80.20 Calculus of gallbladder without cholecystitis without obstruction; K57.90 Diverticulosis of intestine, part unspecified, without perforation or abscess without bleeding; Z17.0 Estrogen receptor positive status [ER+]
CPT/HCPCS: 71260; 74177; Q9967

== ENCOUNTER → 2020-01-18 12:06 | Outpatient (CLI) | payer MEDICARE, OTHER, MEDICAID, SELFPAY ==
--- NOTE | 2020-01-18 12:08 | DI.CT.S_ITS ---
PROCEDURE: CT CHEST ABD PEL W CON INDICATIONS: enodmetrium cancer, breast cancer TECHNIQUE: After the administration of oral and intravenous contrast, 5 mm thick sections acquired from the lung apices to the symphysis. 5 mm coronal and sagittal reformats were performed, with additional 7 mm coronal MIP reformats through the lungs. For radiation dose reduction, the following was used: automated exposure control, adjustment of mA and/or kV according to patient size. COMPARISON: [facility], CT, CT CHEST ABD PEL W CON, 03/30/2019, 11:44. [facility], CT, CT CHEST ABD PEL W CON, 07/13/2019, 14:38. FINDINGS: Image quality: Excellent. CHEST: Stable appearance of multiple bilateral sub 5 mm pulmonary nodules as depicted on the montage image. Scattered subsegmental atelectasis and/or scarring. No focal consolidation. No pleural effusions or pneumothorax. Central and peripheral airways appear patent and normal in caliber. Mediastinum: Heart size is normal. No pericardial effusion. No mediastinal or hilar adenopathy by size criteria. Thoracic aorta and central pulmonary arteries are normal in size. Esophagus is normal in caliber. No hiatal hernia. Chest wall: No axillary or supraclavicular adenopathy by size criteria. Thyroid gland not well seen. . Left breast mass with internal low attenuation or complex cystic nature measures 2.9 x 4.1 cm, previously 2.6 x 3.9 cm. ABDOMEN: Solid organs: Liver is normal in size and enhancement. Gallbladder contains debris and/or non radiopaque calculi. This could be better assessed with ultrasound as clinically necessary. . Biliary system is non dilated. Pancreas enhances normally. Spleen is normal in size and enhancement. No adrenal nodules. Kidneys demonstrate normal size and enhancement, without hydronephrosis. Peritoneum and bowel: Bowel loops demonstrate normal wall thickness and caliber. No free fluid or air. Colonic diverticulosis is seen without evidence of acute complication. Appendix is not clearly identified however no suspicious pericecal inflammatory changes are seen. Nodes and vessels: No retroperitoneal or mesenteric adenopathy by size criteria. Aorta and inferior vena cava are normal in size. Miscellaneous: No ventral hernias. PELVIS: Genitourinary: Bladder wall thickness is normal. Miscellaneous: No inguinal hernias or adenopathy. Bones: No suspicious bony lesions. Mild T9 compression fracture appears unchanged IMPRESSION: Slightly increased size of left breast mass as above. Recommend mammographic and ultrasound correlation if not already performed. Elsewhere, no specific CT evidence of progressive or active metastatic disease Redemonstration of sub 5 mm stable pulmonary nodules. Recommend continued surveillance on subsequent studies. Incidental colonic diverticulosis Dictated by: Jack Kumari M.D. on 01/18/2020 at 15:01 Approved by: Jack Kumari M.D. on 01/18/2020 at 15:12
== END ==
PROVIDERS: Family Provider Student in an Organized Health Care Education/Training Program; PCP Student in an Organized Health Care Education/Training Program; Referring Provider Internal Medicine Hematology & Oncology; Visit Provider Internal Medicine Hematology & Oncology
DX: C50.912 Malignant neoplasm of unspecified site of left female breast (principal); R91.8 Other nonspecific abnormal finding of lung field; K57.90 Diverticulosis of intestine, part unspecified, without perforation or abscess without bleeding; Z85.42 Personal history of malignant neoplasm of other parts of uterus; Z17.0 Estrogen receptor positive status [ER+]
CPT/HCPCS: 36591; 71260; 74177; 80053; 85025; 86304; Q9967

== ENCOUNTER → 2020-02-15 13:33 | Outpatient (CLI) | payer MEDICARE, OTHER, MEDICAID, SELFPAY ==
--- NOTE | 2020-02-15 13:58 | DI.MG.S_ITS ---
Patient Name: MARGARITA KAYE date: 1960 Sex: F Attending Physician: Colin Indications: Date: 02/15/2020 14:06 At the request of: FREIDA WILSON Procedure: MM diagnostic mammo BI BILATERAL DIGITAL DIAGNOSTIC MAMMOGRAM 3D/2D: 02/15/2020 CLINICAL: Left breast cancer. Comparison is made to exams dated: 03/07/2019 mammogram - [facility], 02/20/2017 mammogram, and 01/12/2016 mammogram - [facility]. There are scattered fibroglandular elements in both breasts. There is an oval equal density mass with an indistinct margin in the left breast at 2 o'clock posterior depth. This is not significantly changed and correlates with CT findings. No other significant masses, calcifications, or other findings are seen in either breast. IMPRESSION: INCOMPLETE: NEEDS ADDITIONAL IMAGING EVALUATION The oval equal density mass in the left breast likely represents a hematoma and is indeterminate. An ultrasound is recommended. Ultrasound will be performed immediately following the current exam. This exam was interpreted at Station ID: [id number]. NOTE: For mammograms, a report in lay terms will be sent to the patient. Approximately 15% of breast malignancies will not be visualized mammographically. In the management of a palpable breast mass, a negative mammogram must not discourage biopsy of a clinically suspicious lesion. Electronically Signed By: Martell Ayala M.D. ddp/:02/15/2020 15:28:54 ACR BI-RADS Category 0: Incomplete [id number]
--- NOTE | 2020-02-15 14:45 | DI.US.S_ITS ---
Patient Name: MARGARITA KAYE date: 1960 Sex: F Attending Physician: Colin Indications: Date: 02/15/2020 14:56 At the request of: FREIDA WILSON Procedure: US breast LT limited LIMITED ULTRASOUND OF LEFT BREAST: 02/15/2020 CLINICAL: Follow up from addtional views. Comparison is made to exams dated: 02/15/2020 mammogram, 03/07/2019 mammogram, 08/11/2018 ultrasound, 01/01/2018 specimen, and 01/01/2018 [facility]. Color flow and real-time ultrasound of the left breast 4 o'clock region were performed on the areas of interest. There is a 3 cm x 2.7 cm x 4.1 cm oval fluid collection in the left breast at 4 o'clock middle depth. This oval fluid collection is of mixed echogenicity with posterior acoustic enhancement. This correlates with mammography and CT findings. Color flow imaging demonstrates that there is no internal vascularity present. IMPRESSION: BENIGN There is no sonographic evidence of malignancy. The 3 cm x 2.7 cm x 4.1 cm oval fluid collection in the left breast is consistent with a hematoma or seroma and is benign. A 1 year screening mammogram is recommended. This exam was interpreted at Station ID: [id number]. Electronically Signed By: Martell Ayala M.D. ddelieser/:02/15/2020 16:13:35 letter sent: Normal Exam Ultrasound BI-RADS: 2 Benign
== END ==
PROVIDERS: Family Provider Student in an Organized Health Care Education/Training Program; PCP Student in an Organized Health Care Education/Training Program; Referring Provider Student in an Organized Health Care Education/Training Program; Visit Provider Internal Medicine Hematology & Oncology
DX: C50.912 Malignant neoplasm of unspecified site of left female breast (principal); C54.1 Malignant neoplasm of endometrium; R92.8 Other abnormal and inconclusive findings on diagnostic imaging of breast; N63.21 Unspecified lump in the left breast, upper outer quadrant; M85.88 Other specified disorders of bone density and structure, other site; Z78.0 Asymptomatic menopausal state; E07.9 Disorder of thyroid, unspecified
CPT/HCPCS: 76642; 77066; 77080; G0279

== ENCOUNTER → 2020-06-29 16:23 | Outpatient (CLI) | payer MEDICARE, MEDICAID, SELFPAY ==
[2020-06-29 17:09] LABS: Appearance Urine UA CLEAR; Bilirubin Urine UA NEGATIVE (NEGATIVE); Color Urine UA YELLOW; Glucose Urine UA NEGATIVE (Negative); Ketones Urine UA NEGATIVE (NEGATIVE); Leukocyte Esterase Urine UA 1+ (NEGATIVE); Nitrite Urine UA NEGATIVE (Negative); Occult Blood Urine UA TRACE-LYSED (Negative); Protein Urine UA NEGATIVE (Negative); Specific Gravity Urine UA 1.025 (1.000-1.035); Urobilinogen Urine UA 0.2 E.U./dL (0.2)
[2020-06-29 17:18] LABS: Bacteria Urine Few (2-10); Culture Indicated Urine Specimen Cultured; Mucus Urine 1+ (Negative); RBC Urine 1-5/HPF (0-5/HPF); Squamous Epithelial Cell Urine 1-5 /HPF (0-5/HPF); Transitional Epi Cells Urine 1-5/HPF (0-5/HPF); WBC Urine 5-10/HPF (0-5/HPF)
== END ==
PROVIDERS: Family Provider Student in an Organized Health Care Education/Training Program; PCP Student in an Organized Health Care Education/Training Program; Referring Provider Student in an Organized Health Care Education/Training Program; Visit Provider Student in an Organized Health Care Education/Training Program
DX: R30.0 Dysuria (principal)
CPT/HCPCS: 81001; 87086

== ENCOUNTER → 2020-08-02 11:07 | Outpatient (CLI) | payer MEDICARE, MEDICAID, SELFPAY ==
--- NOTE | 2020-08-02 12:34 | DI.CT.S_ITS ---
PROCEDURE: CT CHEST ABD PEL W CON INDICATIONS: endometrium cancer, breast cancer TECHNIQUE: After the administration of oral and intravenous contrast, 5 mm thick sections acquired from the lung apices to the symphysis. 5 mm coronal and sagittal reformats were performed, with additional 7 mm coronal MIP reformats through the lungs. For radiation dose reduction, the following was used: automated exposure control, adjustment of mA and/or kV according to patient size. COMPARISON: [facility], CT, CHEST/ABD/PEL WITH CONTRAST, 03/20/2017, 11:02. [facility], CT, ABDOMEN/PELVIS WITH CONTRAST, 04/16/2017, 15:15. [facility], US, US BREAST LT LIMITED, 02/15/2020, 14:45. [facility], MG, MM DIAGNOSTIC MAMMO BI, 02/15/2020, 13:58. [facility], CT, CT CHEST ABD PEL W CON, 01/18/2020, 13:45. FINDINGS: Image quality: Excellent. CHEST: Lungs and pleura: No acute airspace opacities. No pleural effusions or pneumothorax. Central and peripheral airways appear patent and normal in caliber. Previously identified punctate nodules within the left lower lobe are unchanged. No new nodules are identified. Mediastinum: Heart size is normal. No pericardial effusion. No mediastinal or hilar adenopathy by size criteria. Thoracic aorta and central pulmonary arteries are normal in size. Esophagus is normal in caliber. No hiatal hernia. Chest wall: No axillary or supraclavicular adenopathy by size criteria. Thyroid gland is unremarkable. Port-A-Cath is noted. Left low-attenuation breast mass is unchanged. It is noted on prior ultrasound the superior most consistent with hematoma and/or seroma. ABDOMEN: Solid organs: Liver is normal in size and enhancement. Gallbladder demonstrates areas of punctate calcification. In addition, a more more fists slightly less prominent hyperdense appearance is present within the dependent portion. There is no wall thickening. Apparent cyst similar compared to prior exam . Biliary system is non dilated. Pancreas enhances normally. Spleen is normal in size and enhancement. No adrenal nodules. Kidneys demonstrate normal size and enhancement, without hydronephrosis. Peritoneum and bowel: Bowel loops demonstrate normal wall thickness and caliber. No free fluid or air. Scattered diverticula without inflammatory change. Nodes and vessels: No retroperitoneal or mesenteric adenopathy by size criteria. Aorta and inferior vena cava are normal in size. Miscellaneous: No ventral hernias. PELVIS: Genitourinary: Bladder wall thickness is normal. Miscellaneous: No inguinal hernias or adenopathy. Bones: No suspicious bony lesions. No vertebral body compression fractures. IMPRESSION: 1. Stable interval exam demonstrating punctate left lower lobe nodules without interval change. No new nodules are identified. 2. No evidence of metastatic disease within the abdomen and pelvis. 3. Ill-defined areas of increased density within the gallbladder lumen. It is noted that has been stable since 2017 and likely represents amorphous sludge and/or stones of different composition, rather than polyps or malignancy. If clinical concern is present, dedicated ultrasound is recommended for further evaluation. Dictated by: Allison Tovar M.D. on 08/02/2020 at 14:59 Approved by: Allison Tovar M.D. on 08/02/2020 at 15:07
== END ==
PROVIDERS: Family Provider Student in an Organized Health Care Education/Training Program; PCP Student in an Organized Health Care Education/Training Program; Referring Provider Internal Medicine Hematology & Oncology; Visit Provider Internal Medicine Hematology & Oncology
DX: C50.912 Malignant neoplasm of unspecified site of left female breast (principal); C54.1 Malignant neoplasm of endometrium; M85.80 Other specified disorders of bone density and structure, unspecified site
CPT/HCPCS: 71260; 74177; Q9967

== ENCOUNTER → 2021-02-28 09:39 | Outpatient (CLI) | payer MEDICARE, MEDICAID, SELFPAY ==
--- NOTE | 2021-02-28 09:41 | DI.MG.S_ITS ---
BILATERAL DIGITAL SCREENING MAMMOGRAM 3D/2D WITH CAD: 02/28/2021 CLINICAL: Routine screening. Personal history of left breast cancer. Family history of breast cancer. Comparison is made to exams dated: 02/15/2020 mammogram, 03/07/2019 mammogram, and 08/11/2018 [facility]. There are scattered fibroglandular elements in both breasts. Current study was also evaluated with a Computer Aided Detection (CAD) system. There are benign post operative findings in the left breast. No significant masses, calcifications, or other findings are seen in either breast. There has been no significant interval change. IMPRESSION: BENIGN There is no mammographic evidence of malignancy. A 1 year screening mammogram is recommended. This exam was interpreted at Station ID: [id number]. NOTE: For mammograms, a report in lay terms will be sent to the patient. Approximately 15% of breast malignancies will not be visualized mammographically. In the management of a palpable breast mass, a negative mammogram must not discourage biopsy of a clinically suspicious lesion. Electronically Signed By: Thaddeus wahl/maria dolores:02/28/2021 12:54:50 letter sent: Normal Exam ACR BI-RADS Category 2: Benign Finding(s) 3342F
--- NOTE | 2021-02-28 11:30 | DI.CT.S_ITS ---
PROCEDURE: CT CHEST ABD PEL W CON INDICATIONS: metastatic endometrial ca TECHNIQUE: After the administration of oral and intravenous contrast, axial sections acquired from the supraclavicular neck to the pubic symphysis. Coronal and sagittal reformats were performed. For radiation dose reduction, the following was used: automated exposure control, adjustment of mA and/or kV according to patient size. COMPARISON: [facility], CT, CT CHEST ABD PEL W CON, 08/02/2020, 12:17. FINDINGS: Image quality: Excellent. CHEST: Lower Neck: No enlarged lymph nodes. Thyroid: Within normal limits. Axillae: No enlarged lymph nodes. Left axillary clips. Chest Wall: Unremarkable. Presumed postoperative left breast seroma is unchanged. It measures approximately 4 cm. Right chest Port-A-Cath. Lungs and Airways: Tiny left basilar pulmonary nodules are stable. No new or increasing pulmonary nodules. Pleura: No pneumothorax or pleural effusions. Heart: Heart size is normal. No pericardial effusion. Thoracic Vessels: The aorta and pulmonary arteries demonstrate normal size. Mediastinum and Estephania: No enlarged lymph nodes. Esophagus: No wall thickening. No hiatal hernia. ABDOMEN: Liver: Unremarkable. Gallbladder: Contains tiny stones. No gallbladder wall thickening. Biliary ducts: Unremarkable. Pancreas: Unremarkable. Spleen: Unremarkable. Adrenal Glands: Unremarkable. Kidneys and Ureters: Unremarkable. Stomach and Bowel: Mild diverticulosis without evidence of diverticulitis. Peritoneum: No abnormal intraperitoneal fluid. No free air. Ventral Wall: No hernia. Abdominal Nodes: No retroperitoneal or mesenteric adenopathy by size criteria. Vessels: Aorta and inferior vena cava are normal in size. PELVIS: Pelvic Organs: Uterus is surgically absent.. Bladder: Unremarkable. Pelvic Nodes: No enlarged lymph nodes. Miscellaneous: No inguinal hernias are seen. Bones: Stable benign-appearing compression fractures of T8 and T9. No lytic or blastic bony lesions. IMPRESSION: 1. Small left basilar pulmonary nodules are stable, presumed benign. 2. Stable presumed left breast seroma. 3. No evidence of metastatic disease in the chest, abdomen, and pelvis. 4. Cholelithiasis. 5. Presumed benign chronic osteoporotic compressions. Dictated by: Larry Gordon M.D. on 02/28/2021 at 16:42 Approved by: Larry Gordon M.D. on 02/28/2021 at 16:49
== END ==
PROVIDERS: Family Provider Student in an Organized Health Care Education/Training Program; PCP Student in an Organized Health Care Education/Training Program; Referring Provider Internal Medicine Hematology & Oncology; Visit Provider Internal Medicine Hematology & Oncology
DX: Z12.31 Encounter for screening mammogram for malignant neoplasm of breast (principal); C50.912 Malignant neoplasm of unspecified site of left female breast; C54.1 Malignant neoplasm of endometrium; Z80.3 Family history of malignant neoplasm of breast
CPT/HCPCS: 71260; 74177; 77063; 77067

== ENCOUNTER → 2022-02-01 11:07 | Outpatient (CLI) | payer MEDICARE, MEDICAID, SELFPAY ==
--- NOTE | 2022-02-01 11:08 | DI.CT.S_ITS ---
PROCEDURE: CT CHEST ABD PEL W CON INDICATIONS: breast cancer, metastatic endometrial cancer TECHNIQUE: After the administration of oral and intravenous contrast, axial sections acquired from the supraclavicular neck to the pubic symphysis. Coronal and sagittal reformats were performed. For radiation dose reduction, the following was used: automated exposure control, adjustment of mA and/or kV according to patient size. COMPARISON: [facility], CT, CT CHEST ABD PEL W CON, 08/02/2020, 12:17. [facility], CT, CHEST/ABD/PEL WITH CONTRAST, 03/20/2017, 11:02. FINDINGS: Image quality: Excellent. CHEST: Lower Neck: No enlarged lymph nodes. Thyroid: Not visualized Axillae: No enlarged lymph nodes. Chest Wall: Unremarkable. There is a right Port-A-Cath, the tip of which is in the lower SVC. A low-density fluid collection is present within the upper outer quadrant of the left breast suggesting a postsurgical seroma. This is similar in appearance to the comparison CT dated August 02, 2020 but as decreased from 4.0 cm in diameter to 3.5 cm in diameter. Lungs and Airways: No consolidation or suspicious nodules. Stable 3 mm pulmonary nodule is redemonstrated within the lateral aspect of the left lower lobe. A stable 4 mm pulmonary nodule is present within the right middle lobe (series 3/image 182). No new pulmonary nodules. No acute airspace opacities. No pleural effusion or pneumothorax. Pleura: No pneumothorax or pleural effusions. Heart: Heart size is normal. No pericardial effusion. Thoracic Vessels: The aorta and pulmonary arteries demonstrate normal size. Mediastinum and Estephania: No enlarged lymph nodes. Esophagus: No wall thickening. No hiatal hernia. ABDOMEN: Liver: Unremarkable. Gallbladder: Subcentimeter gallstones are present in the gallbladder fundus. No Biliary ducts: Unremarkable. Pancreas: Unremarkable. Spleen: Unremarkable. Adrenal Glands: Unremarkable. Kidneys and Ureters: Unremarkable. Stomach and Bowel: Stomach, small bowel loops, and colon are unremarkable. There is a small gas filled duodenal diverticulum. There are scattered sigmoid diverticula. No evidence for diverticulitis. The appendix is thin walled and gas filled. Peritoneum: No abnormal intraperitoneal fluid. No free air. Ventral Wall: No hernia. Abdominal Nodes: No retroperitoneal or mesenteric adenopathy by size criteria. Vessels: Aorta and inferior vena cava are normal in size. PELVIS: Pelvic Organs: Unremarkable. Bladder: Unremarkable. Pelvic Nodes: No enlarged lymph nodes. Miscellaneous: No inguinal hernias are seen. Bones: Unremarkable. IMPRESSION: 1. No findings to suggest new metastasis or tumor recurrence. 2. No acute intra-abdominal findings. Normal appendix. Diverticulosis. No acute diverticulitis. Dictated by: Denise Deleon M.D. on 02/01/2022 at 15:05 Approved by: Denise Deleon M.D. on 02/01/2022 at 16:21
== END ==
PROVIDERS: Family Provider Student in an Organized Health Care Education/Training Program; PCP Student in an Organized Health Care Education/Training Program; Referring Provider Internal Medicine Hematology & Oncology; Visit Provider Internal Medicine Hematology & Oncology
DX: C50.912 Malignant neoplasm of unspecified site of left female breast (principal); C54.1 Malignant neoplasm of endometrium; K57.30 Diverticulosis of large intestine without perforation or abscess without bleeding; K57.10 Diverticulosis of small intestine without perforation or abscess without bleeding
CPT/HCPCS: 71260; 74177; Q9967

== ENCOUNTER → 2022-03-01 12:36 | Outpatient (CLI) | payer MEDICARE, MEDICAID, SELFPAY ==
--- NOTE | 2022-03-01 12:36 | DI.MG.S_ITS ---
BILATERAL DIGITAL SCREENING MAMMOGRAM 3D/2D WITH CAD: 03/01/2022 CLINICAL: Routine screening. Personal history of left breast cancer. Family history of breast cancer. Comparison is made to exams dated: 02/28/2021 mammogram, 02/15/2020 mammogram, and 03/07/2019 mammogram - [facility]. There are scattered areas of fibroglandular density in both breasts (category b / 25%-50% glandular tissue). Current study was also evaluated with a Computer Aided Detection (CAD) system. There are benign post operative findings in the left breast. No significant masses, calcifications, or other findings are seen in either breast. There has been no significant interval change. IMPRESSION: BENIGN There is no mammographic evidence of malignancy. A 1 year screening mammogram is recommended. This exam was interpreted at Station ID: [id number]. NOTE: For mammograms, a report in lay terms will be sent to the patient. Approximately 15% of breast malignancies will not be visualized mammographically. In the management of a palpable breast mass, a negative mammogram must not discourage biopsy of a clinically suspicious lesion. Electronically Signed By: Thaddeus wahl/maria dolores:03/01/2022 16:55:51 letter sent: Normal Exam ACR BI-RADS Category 2: Benign Finding(s) 3342F
== END ==
PROVIDERS: Family Provider Student in an Organized Health Care Education/Training Program; PCP Student in an Organized Health Care Education/Training Program; Referring Provider Internal Medicine Hematology & Oncology; Visit Provider Internal Medicine Hematology & Oncology
DX: Z12.31 Encounter for screening mammogram for malignant neoplasm of breast (principal); Z85.3 Personal history of malignant neoplasm of breast; Z80.3 Family history of malignant neoplasm of breast
CPT/HCPCS: 77063; 77067

== ENCOUNTER → 2022-12-11 12:50 | Outpatient (CLI) | payer MEDICARE, MEDICAID, SELFPAY ==
[2022-12-11 14:34] LABS: Cholesterol 156 mg/dL (140-199); HDL Cholesterol 45 mg/dL (40-60); LDL Cholesterol Calculated 84 mg/dL (<100); Triglycerides 134 mg/dL (35-150)
[2022-12-11 15:04] LABS: TSH w/ Reflex to FT4 0.03 uIU/mL (0.47-4.68)
[2022-12-11 16:34] LABS: Free T4, Direct Thyroxine 1.95 ng/dL (0.78-2.19)
== END ==
PROVIDERS: Family Provider Student in an Organized Health Care Education/Training Program; PCP Pediatrics; Referring Provider Pediatrics; Visit Provider Pediatrics
DX: E03.9 Hypothyroidism, unspecified (principal); E78.5 Hyperlipidemia, unspecified; I10 Essential (primary) hypertension
CPT/HCPCS: 36415; 80061; 84439; 84443

== ENCOUNTER → 2023-02-06 10:21 | Outpatient (CLI) | payer MEDICARE, MEDICAID, SELFPAY ==
--- NOTE | 2023-02-06 10:22 | DI.CT.S_ITS ---
PROCEDURE: CT CHEST ABD PEL W CON INDICATIONS: Breast cancer TECHNIQUE: After the administration of oral and intravenous contrast, axial sections acquired from the supraclavicular neck to the pubic symphysis. Coronal and sagittal reformats were performed. For radiation dose reduction, the following was used: automated exposure control, adjustment of mA and/or kV according to patient size. COMPARISON: [facility], CT, CT CHEST ABD PEL W CON, 02/01/2022, 12:37. FINDINGS: Image quality: Excellent. CHEST: Lower Neck: No enlarged lymph nodes. Thyroid: Within normal limits. Axillae: Left axillary lymph node dissection. Chest Wall: Similar size of the postoperative seroma in the left breast measuring 3.5 cm, with surrounding surgical clips. Right chest wall port tip terminates in the high SVC. Similar posterior chest wall subcutaneous nodule measuring 1.1 cm , previously 1 cm (series 2, image 1). Lungs and Airways: Scattered, stable solid pulmonary nodules. Examples include: -stable 4 mm solid nodule, left lower lobe (series 5, image 178). -4 mm solid nodule, right middle lobe (series 5, image 200). Pleura: No pneumothorax or pleural effusions. Heart: Heart size is normal. No pericardial effusion. Thoracic Vessels: The aorta and pulmonary arteries demonstrate normal size. Mediastinum and Estephania: No enlarged lymph nodes. Esophagus: No wall thickening. No hiatal hernia. ABDOMEN: Liver: Unremarkable. Gallbladder: Cholelithiasis without wall thickening or adjacent fat stranding to suggest acute cholecystitis. Biliary ducts: Unremarkable. Pancreas: Unremarkable. Spleen: Unremarkable. Adrenal Glands: Unremarkable. Kidneys and Ureters: Unremarkable. Stomach and Bowel: Stomach, small bowel loops, and colon are unremarkable. Colonic diverticulosis without evidence of diverticulitis. Peritoneum: No abnormal intraperitoneal fluid. No free air. Ventral Wall: No hernia. Abdominal Nodes: No retroperitoneal or mesenteric adenopathy by size criteria. Vessels: Aorta and inferior vena cava are normal in size. PELVIS: Pelvic Organs: Unremarkable. Bladder: Unremarkable. Pelvic Nodes: No enlarged lymph nodes. Miscellaneous: No inguinal hernias are seen. Bones: Mild compression deformity of the T9 vertebral body, without endplate retropulsion. This is stable from prior. IMPRESSION: 1. Prior left breast lumpectomy. Stable postoperative seroma. 2. No evidence of metastatic disease. 3. Posterior chest wall subcutaneous nodule measuring 1.1 cm, previously 1.0 cm. This probably represents a sebaceous cyst, but consider direct visualization to exclude malignancy such as melanoma. Dictated by: Timothy Allen M.D. on 02/06/2023 at 15:39 Approved by: Timothy Allen M.D. on 02/06/2023 at 15:45
== END ==
PROVIDERS: Family Provider Student in an Organized Health Care Education/Training Program; PCP Pediatrics; Referring Provider Internal Medicine Hematology & Oncology; Visit Provider Internal Medicine Hematology & Oncology
DX: C50.912 Malignant neoplasm of unspecified site of left female breast (principal); R22.2 Localized swelling, mass and lump, trunk; K57.90 Diverticulosis of intestine, part unspecified, without perforation or abscess without bleeding; C54.1 Malignant neoplasm of endometrium; Z90.710 Acquired absence of both cervix and uterus; Z90.722 Acquired absence of ovaries, bilateral
CPT/HCPCS: 71260; 74177

== ENCOUNTER → 2023-03-05 12:54 | Outpatient (CLI) | payer MEDICARE, MEDICAID, SELFPAY ==
--- NOTE | 2023-03-05 12:55 | DI.MG.S_ITS ---
BILATERAL DIGITAL SCREENING MAMMOGRAM 3D/2D WITH CAD: 03/05/2023 CLINICAL: Routine screening. Family history of breast cancer. Breast cancer. Comparison is made to exams dated: 03/01/2022 mammogram, 02/28/2021 mammogram, and 02/15/2020 mammogram - [facility]. There are scattered areas of fibroglandular density in both breasts (category b / 25%-50% glandular tissue). Current study was also evaluated with a Computer Aided Detection (CAD) system. There are benign post operative findings in the left breast. No significant masses, calcifications, or other findings are seen in either breast. There has been no significant interval change. IMPRESSION: BENIGN There is no mammographic evidence of malignancy. A 1 year screening mammogram is recommended. This exam was interpreted at Station ID: [id number]. NOTE: For mammograms, a report in lay terms will be sent to the patient. Approximately 15% of breast malignancies will not be visualized mammographically. In the management of a palpable breast mass, a negative mammogram must not discourage biopsy of a clinically suspicious lesion. Electronically Signed By: Denise huerta/maria dolores:03/05/2023 16:02:01 letter sent: Normal Exam ACR BI-RADS Category 2: Benign Finding(s) 3342F
== END ==
PROVIDERS: Family Provider Student in an Organized Health Care Education/Training Program; PCP Pediatrics; Referring Provider Internal Medicine Hematology & Oncology; Visit Provider Internal Medicine Hematology & Oncology
DX: Z12.31 Encounter for screening mammogram for malignant neoplasm of breast (principal); C50.912 Malignant neoplasm of unspecified site of left female breast; C54.1 Malignant neoplasm of endometrium; Z80.3 Family history of malignant neoplasm of breast
CPT/HCPCS: 77063; 77067

== ENCOUNTER → 2023-05-17 14:52 | Outpatient (CLI) | payer MEDICARE, MEDICAID, SELFPAY ==
[2023-05-17 16:18] LABS: TSH w/ Reflex to FT4 0.02 uIU/mL (0.47-4.68)
[2023-05-17 17:30] LABS: Free T4, Direct Thyroxine 1.92 ng/dL (0.78-2.19)
== END ==
PROVIDERS: Family Provider Student in an Organized Health Care Education/Training Program; PCP Family Medicine; Referring Provider Pediatrics; Visit Provider Pediatrics
DX: E05.00 Thyrotoxicosis with diffuse goiter without thyrotoxic crisis or storm (principal); E03.9 Hypothyroidism, unspecified
CPT/HCPCS: 36415; 84439; 84443

== ENCOUNTER → 2023-08-13 09:51 | Outpatient (CLI) | payer MEDICARE, MEDICAID, SELFPAY ==
[2023-08-13 11:13] LABS: Alanine Aminotransferase 33 IU/L (<35); Albumin 4.4 g/dL (3.5-5.0); Albumin Globulin Ratio 1.4 (1.0-2.8); Alkaline Phosphatase 79 U/L (38-126); Aspartate Aminotransferase 28 IU/L (14-36); BUN Creatinine Ratio 28.4 (6-22); Bilirubin Total 0.6 mg/dL (0.2-1.3); Blood Urea Nitrogen 23 mg/dL (7-17); Calcium 10.2 mg/dL (8.4-10.2); Carbon Dioxide 28 mmol/L (22-32); Chloride 105 mmol/L (98-107); Estimated Glomerular Filt Rate > 60 mL/min (>60); Globulin 3.2 g/dL (1.7-4.1); Glucose 97 mg/dL (80-110); HEMOLYSIS < 15 (0-50); Potassium 4.4 mmol/L (3.4-5.1); Sodium 140 mmol/L (137-145); Total Protein 7.6 g/dL (6.3-8.2)
[2023-08-13 11:29] LABS: Vitamin D 25 Hydroxy (D3) 55.4 ng/mL (30.0-100.0)
[2023-08-13 11:45] LABS: Thyroid Stimulating Hormone 0.778 uIU/mL (0.47-4.68)
[2023-08-13 13:36] LABS: Creatinine Urine Random 102.6 mg/dL
[2023-08-13 14:05] LABS: Microalbumin Urine Random < 0.6 mg/dL (0-1.6)
[2023-08-14 06:52] LABS: Cancer Antigen 27.29 21.1 U/mL (0.0-38.6)
== END ==
PROVIDERS: PCP Family Medicine; Referring Provider Internal Medicine Hematology & Oncology; Visit Provider Internal Medicine Hematology & Oncology
DX: I10 Essential (primary) hypertension (principal); C50.512 Malignant neoplasm of lower-outer quadrant of left female breast; Z17.0 Estrogen receptor positive status [ER+]; C54.1 Malignant neoplasm of endometrium; E03.9 Hypothyroidism, unspecified; Z86.39 Personal history of other endocrine, nutritional and metabolic disease
CPT/HCPCS: 36415; 80053; 82043; 82306; 82570; 84443; 86300

== ENCOUNTER 2023-10-01 20:06 | Emergency (ER) | payer MEDICARE, SELFPAY ==
[2023-10-01 20:10] VITALS: BP 194/93; PULSE 80; RESP 18; TEMP 36.5; O2SAT 98; BMI 35.2
[2023-10-01 20:45] LABS: Add Manual Diff / Slide Review NO; Basophils Absolute Auto 0 /uL (0-100); Basophils Percent Auto 0.3 % (0-2); Eosinophils Absolute Auto 0 /uL (0-450); Eosinophils Percent Auto 0.1 % (2-4); Hematocrit 42.4 % (36-46); Hemoglobin 14.4 g/dL (12.0-16.0); Lymphocytes Absolute Auto 1000 /uL (1100-4500); Lymphocytes Percent Auto 7.6 % (25-40); Mean Corpuscular HGB Conc 33.9 % (30-36); Mean Corpuscular Hemoglobin 30.3 PG (26-34); Mean Corpuscular Volume 89.6 fL (80-100); Monocytes Absolute Auto 500 /uL (0-900); Monocytes Percent Auto 3.5 % (3-14); Neutrophils Absolute Auto 11800 /uL (1500-7000); Neutrophils Percent Auto 88.5 % (50-75); Platelet Count 202 X10^3/uL (150-400); Red Blood Cell Count 4.74 X10^6/uL (4.0-5.2); Red Cell Distribution Width 12.5 % (11.6-14.8); White Blood Cell Count 13.4 X10^3/uL (4.5-11.0)
--- NOTE | 2023-10-01 20:47 | DI.CT.S_ITS ---
PROCEDURE: CT ABDOMEN PELVIS W CON INDICATIONS: rlq abd pain TECHNIQUE: After the administration of intravenous contrast, axial sections acquired from the lung bases to the pubic symphysis. Coronal and sagittal reformats were performed. For radiation dose reduction, the following was used: automated exposure control, adjustment of mA and/or kV according to patient size. COMPARISON: [facility], CT, CT CHEST ABD PEL W CON, 02/06/2023, 12:23. [facility], CT, ABDOMEN/PELVIS WITH CONTRAST, 04/16/2017, 15:15. FINDINGS: Image quality: Diagnostic. Lower Chest: Right middle lobe nodule measuring 3 mm. Left lower lobe nodule measuring 3 mm. ABDOMEN: Liver: No solid mass. Gallbladder: Cholelithiasis without CT evidence of acute cholecystitis. Biliary ducts: No biliary dilation. Pancreas: No ductal dilation. Spleen: Size is within normal limits. Adrenal Glands: No adrenal nodules. Kidneys and Ureters: [id number] right hydronephrosis. Perinephric stranding. [id number] right hydroureter with calcification at the ureterovesicular junction measuring approximately 3 mm. Left kidney is normal in appearance without stones or hydronephrosis. Stomach and Bowel: Normal colonic caliber, without significant wall thickening. Diverticulosis without evidence of acute diverticulitis. Normal appendix. Peritoneum: No abnormal intraperitoneal fluid. No free air. Ventral Wall: No significant ventral hernia. Abdominal Nodes: No retroperitoneal or mesenteric adenopathy by size criteria. Vessels: Aorta and inferior vena cava are normal in size. Mild atherosclerotic vascular calcifications. PELVIS: Pelvic Organs: Unremarkable. Bladder: Decompressed, limiting evaluation. No calcified stones. Pelvic Nodes: No enlarged lymph nodes. Miscellaneous: Stable 1.2 x 1.3 cm right inguinal lymph node. Bones: No aggressive osseous abnormality. IMPRESSION: 1. Obstructing 3 mm stone at the right ureterovesicular junction resulting in [id number] hydroureteronephrosis. 2. Cholelithiasis without evidence of acute cholecystitis. 3. Diverticulosis without evidence of acute diverticulitis. 4. Stable 3 mm pulmonary nodules. 5. Stable 1.3 cm right inguinal lymph node. Dictated by: Esau Reza M.D. on 10/01/2023 at 21:28 Approved by: Esau Reza M.D. on 10/01/2023 at 21:33
--- NOTE | 2023-10-01 20:53 | ED_ITS ---
HPI - Abdominal Pain General Chief Complaint: Abdominal Pain Stated Complaint: lwr rt back pain radiating to back Time Seen by Provider: 10/01/23 20:39 Source: patient Mode of arrival: Ambulatory History of Present Illness HPI narrative: 63-year-old female with history of hypothyroidism, breast cancer (s/p lumpectomy 2018 w/chemo and radiation), endometrial carcinoma (s/p YELENA BSO 2017), HTN, HLD presents by private vehicle from home for right lower quadrant abdominal pain with nausea and vomiting. Pain began gradually earlier this morning and worsened in intensity. Not improved with Tylenol taken at home. States she has been told that she has gallstones in the past and is concerned that these may be acting up. Also reports urinary frequency and burning with urination Related Data Home Medications Medication Instructions Recorded Confirmed acetaminophen 500 mg tablet 1,000 mg PO Q6H PRN 02/27/23 05/22/23 flu vacc [id number] 6mos up(PF) 60 0.5 ml IM ONCE 02/27/23 05/22/23 mcg (15 mcgx4)/0.5 mL IM syringe gentamicin 0.3 % eye drops drp EYE-BOTH 02/27/23 05/22/23 lorazepam 1 mg tablet 0.5 mg PO BEDTIME PRN Anxiety 02/27/23 05/22/23 olanzapine 10 mg tablet (Zyprexa) 10 mg PO DAILY 02/27/23 05/22/23 tramadol 50 mg tablet 150 mg PO DAILY 02/27/23 05/22/23 Previous Rx's Medication Instructions Recorded letrozole 2.5 mg tablet 2.5 mg PO DAILY breast cancer #90 05/28/22 tabs atorvastatin 40 mg tablet 40 mg PO BEDTIME #90 tabs 02/11/23 levothyroxine 125 mcg tablet 125 mcg PO DAILY #30 tabs 05/22/23 (Synthroid) lisinopril 20 mg tablet 20 mg PO DAILY #90 tabs 08/09/23 hydrocodone 5 mg-acetaminophen 325 1 tab PO Q8H PRN pain #10 tabs 10/01/23 mg tablet ondansetron 4 mg disintegrating 4 mg PO Q8H PRN nausea and 10/01/23 tablet vomiting #30 tabs tamsulosin 0.4 mg capsule 0.4 mg PO DAILY #30 caps 10/01/23 Allergies Allergy/AdvReac Type Severity Reaction Status Date / Time No Known Drug Allergies Allergy Verified 05/22/23 13:42 Review of Systems Review of Systems Narrative: See HPI Patient History Medical History Migraines (~2005) Ankle pain (~2010) Mumps (~1969) Measles (~1969) Chicken pox (~1971) Anemia (~2007) Irregular menstrual cycle (~2015) Heavy menstrual period Fibroids (~2007) History of urinary incontinence (~2013) Hypothyroidism (~1995) Graves disease (~1991) Second hand smoke exposure Cataracts, bilateral (~2015) Chronic headaches (~1999) Cholelithiasis Compression fracture of body of thoracic vertebra Hypertension Osteopenia Anxiety (~2009) Surgical History History of salpingectomy (~04/24/17) Status post hysterectomy with oophorectomy (04/24/17) Family History Mother Age: 85 Graves disease Father COPD (chronic obstructive pulmonary disease) Grandfather Stroke Grandmother Cancer Social History household members: significant other Smoking Status: Never smoker substance use type: does not use Smoking Status: Never smoker alcohol intake frequency: holidays/special occasions only Substance Use Type: marijuana Exam Initial Vital Signs Initial Vital Signs: Vital Signs Temperature 97.7 F 10/01/23 20:10 Pulse Rate 80 10/01/23 20:10 Respiratory Rate 18 10/01/23 20:10 Blood Pressure 194/93 H 10/01/23 20:10 Pulse Oximetry 98 10/01/23 20:10 Oxygen Delivery Method Room Air 10/01/23 20:10 Const: Awake, alert, no acute distress, nontoxic appearing Cardiac: regular rate, regular rhythm RESP: unlabored, clear bilaterally, no wheezing GI: Soft, right lower quadrant tenderness to deep palpation without rebound or guarding Skin: Warm, Dry, intact, no rashes Neuro: AO x3, CN II-XII grossly intact, moves all extremities Course Orders Ordered: ED Orders 10/01/23 20:13 Urine Microscopic Stat 10/01/23 20:34 EKG-12 Lead Stat 10/01/23 20:39 Complete Blood Count AUTO DIFF Stat Comprehensive Metabolic Panel Stat Lipase Stat 10/01/23 20:47 CT abdomen pelvis w con Stat Discontinued Medications Hydrocodone Bitart/Acetaminophen (Hydrocodone/Acet 5/325 Prepack) 1 bottle MISC DIRECTED ONE Stop: 10/01/23 21:49 Last Admin: 10/01/23 22:00 Dose: 1 bottle Documented By: BRADY Ketorolac Tromethamine (Ketorolac 30 Mg/Ml Vial) 30 mg IV NOW ONE Stop: 10/01/23 21:02 Last Admin: 10/01/23 21:23 Dose: 30 mg Documented By: BRADY Ondansetron HCl (Ondansetron 4 Mg/2 Ml Inj) 4 mg IV NOW PRN PRN Reason: Nausea And Vomiting Last Admin: 10/01/23 21:41 Dose: 4 mg Documented By: BRADY Ondansetron HCl (Ondansetron 4 Mg Odt) 4 mg SL NOW PRN PRN Reason: Nausea And Vomiting Vital Signs Vital signs: Vital Signs - 8 hr 10/01/23 20:10 10/01/23 21:26 10/01/23 21:27 Temperature 97.7 F Pulse Rate 80 92 H Respiratory Rate 18 19 Blood Pressure 194/93 H 178/113 H Pulse Oximetry 98 98 Oxygen Delivery Method Room Air Room Air 10/01/23 21:59 10/01/23 22:00 10/01/23 22:00 Temperature Pulse Rate 84 Respiratory Rate 18 Blood Pressure 167/87 H Pulse Oximetry 100 98 Oxygen Delivery Method Room Air Room Air MDM - Abdominal Pain Differential Diagnosis Differential diagnosis: Likely abdominal pain, acute appendicitis and calculus of kidney Lab Data 10/01/23 20:39 10/01/23 20:39 Labs: Lab Results 10/01/23 10/01/23 Range/Units 20:13 20:39 WBC 13.4 H (4.5-11.0) X10^3/uL RBC 4.74 (4.0-5.2) X10^6/uL Hgb 14.4 (12.0-16.0) g/dL Hct 42.4 (36-46) % MCV 89.6 (80-100) fL MCH 30.3 (26-34) PG MCHC 33.9 (30-36) % RDW 12.5 (11.6-14.8) % Plt Count 202 (150-400) X10^3/uL Neut % (Auto) 88.5 H (50-75) % Lymph % (Auto) 7.6 L (25-40) % Pine % (Auto) 3.5 (3-14) % Eos % (Auto) 0.1 L (2-4) % Baso % (Auto) 0.3 (0-2) % Neut # (Auto) 22587 H (7193-0489) /uL Lymph # (Auto) 1000 L (8072-3097) /uL Pine # (Auto) 500 (0-900) /uL Eos # (Auto) 0 (0-450) /uL Baso # (Auto) 0 (0-100) /uL Sodium 139 (137-145) mmol/L Potassium 3.8 (3.4-5.1) mmol/L Chloride 106 (98-107) mmol/L Carbon Dioxide 29 (22-32) mmol/L BUN 21 H (7-17) mg/dL Creatinine 1.10 H (0.52-1.04) mg/dL Estimated GFR 56 L (>60) mL/min BUN/Creatinine Ratio 19.1 (6-22) Glucose 115 H (80-110) mg/dL Calcium 10.1 (8.4-10.2) mg/dL Total Bilirubin 0.7 (0.2-1.3) mg/dL AST 34 (14-36) IU/L ALT 33 (<35) IU/L Alkaline Phosphatase 99 (38-126) U/L Total Protein 8.0 (6.3-8.2) g/dL Albumin 5.0 (3.5-5.0) g/dL Globulin 3.0 (1.7-4.1) g/dL Albumin/Globulin Ratio 1.7 (1.0-2.8) Lipase 154 (23-300) U/L Urine RBC 1-5/hpf (0-5/HPF) Urine WBC None seen (0-5/HPF) Ur Squamous Epith Cells 1-5 /hpf (0-5/HPF) Amorphous Sediment 2+ Urine Bacteria None seen (None) Urine Mucus 2+ H (Negative) Ur Culture Indicated? Cult not indicated Vol Urine Centrifuged 10ml (spun) Point of care testing: Urine Dip Bedside Urine Glucose Negative Bedside Urine Bilirubin - Negative Bedside Urine Ketone +/- 5 Urine Specific [place] 1.02 Bedside Urine Occult Blood +/- Bedside Urine pH 6.5 Bedside Urine Protein + 30 Bedside Urine Urobilinogen - Negative Bedside Urine Nitrite - Negative Bedside Urine Leukocytes - Negative Esterase Imaging Data CT scan - abdomen/pelvis: Radiologist's Impression: PROCEDURE: CT ABDOMEN PELVIS W CON INDICATIONS: rlq abd pain TECHNIQUE: After the administration of intravenous contrast, axial sections acquired from the lung bases to the pubic symphysis. Coronal and sagittal reformats were performed. For radiation dose reduction, the following was used: automated exposure control, adjustment of mA and/or kV according to patient size. COMPARISON: [facility], CT, CT CHEST ABD PEL W CON, 02/06/2023, 12:23. [facility], CT, ABDOMEN/PELVIS WITH CONTRAST, 04/16/2017, 15:15. FINDINGS: Image quality: Diagnostic. Lower Chest: Right middle lobe nodule measuring 3 mm. Left lower lobe nodule measuring 3 mm. ABDOMEN: Liver: No solid mass. Gallbladder: Cholelithiasis without CT evidence of acute cholecystitis. Biliary ducts: No biliary dilation. Pancreas: No ductal dilation. Spleen: Size is within normal limits. Adrenal Glands: No adrenal nodules. Kidneys and Ureters: Ctnd-[id number] right hydronephrosis. Perinephric stranding. Labh-oz-zqceklmp right hydroureter with calcification at the ureterovesicular junction measuring approximately 3 mm. Left kidney is normal in appearance without stones or hydronephrosis. Stomach and Bowel: Normal colonic caliber, without significant wall thickening. Diverticulosis without evidence of acute diverticulitis. Normal appendix. Peritoneum: No abnormal intraperitoneal fluid. No free air. Ventral Wall: No significant ventral hernia. Abdominal Nodes: No retroperitoneal or mesenteric adenopathy by size criteria. Vessels: Aorta and inferior vena cava are normal in size. Mild atherosclerotic vascular calcifications. PELVIS: Pelvic Organs: Unremarkable. Bladder: Decompressed, limiting evaluation. No calcified stones. Pelvic Nodes: No enlarged lymph nodes. Miscellaneous: Stable 1.2 x 1.3 cm right inguinal lymph node. Bones: No aggressive osseous abnormality. IMPRESSION: 1. Obstructing 3 mm stone at the right ureterovesicular junction resulting in lbwy-tq-teskkoys hydroureteronephrosis. 2. Cholelithiasis without evidence of acute cholecystitis. 3. Diverticulosis without evidence of acute diverticulitis. 4. Stable 3 mm pulmonary nodules. 5. Stable 1.3 cm right inguinal lymph node. Dictated by: Esau Reza M.D. on 10/01/2023 at 21:28 Approved by: Esau Reza M.D. on 10/01/2023 at 21:33 MDM Narrative Medical decision making narrative: Nontoxic appearing patient with 1 day of right lower quadrant pain. Abdomen is soft but she was tender in the right lower quadrant. Labs, CT imaging ordered. IV fluids, nausea medications, pain medications ordered. Laboratory work shows WBC count 13.4, hemoglobin 14.4, platelet count 202. Sodium 139, potassium 3.8, chloride 106, creatinine 1.10, GFR 56. Creatinine slightly increased compared to previous results in July 2023. Urinalysis negative for infection. CT of the abdomen pelvis shows obstructing 3 mm stone with some hydronephrosis and perinephric stranding. Patient's pain is well controlled, she was tolerating p.o., and there was only mild increase in creatinine, patient should be stable for discharge home. She was counseled on the results of her labs and imaging, discharged with pain medications, Flomax, nausea medications. Patient strongly advised to follow up with Urology and referral provided. Discharge Plan Departure Patient Disposition: Home Clinical Impression: Kidney stone Instructions: DI for Kidney Stones Activity Restrictions/Additional Instructions: Your CT today showed a small kidney stone on the right-hand side that likely explains your pain. You do not have a urinary tract infection. Several medications has been sent to your pharmacy. One is a pain medication. This may cause drowsiness and constipation, so do not take this medication before driving or operating heavy machinery, and you should take a daily stool softener. The other is a medication called Flomax which helps to pass stones. The 3rd is a nausea medication in case you feel nauseous. Please follow up with Urology Prescriptions: New hydrocodone-acetaminophen 5-325 mg tablet 1 tab PO Q8H PRN (Reason: pain) Qty: 10 0RF tamsulosin 0.4 mg capsule 0.4 mg PO DAILY Qty: 30 0RF ondansetron 4 mg tablet,disintegrating 4 mg PO Q8H PRN (Reason: nausea and vomiting) Qty: 30 0RF No Action atorvastatin 40 mg tablet 40 mg PO BEDTIME Qty: 90 2RF levothyroxine [Synthroid] 125 mcg tablet 125 mcg PO DAILY Qty: 30 3RF lisinopril 20 mg tablet 20 mg PO DAILY Qty: 90 1RF lorazepam 1 mg tablet 0.5 mg PO BEDTIME PRN (Reason: Anxiety) flu vacc [id number] 6mos up(PF) 60 mcg (15 mcg x 4)/0.5 mL syringe 0.5 ml IM ONCE Rx Instructions: as a single dose acetaminophen 500 mg tablet 1,000 mg PO Q6H PRN gentamicin 0.3 % drops EYE-BOTH olanzapine [Zyprexa] 10 mg tablet 10 mg PO DAILY tramadol 50 mg tablet 150 mg PO DAILY letrozole 2.5 mg Tablet 2.5 mg PO DAILY Qty: 90 3RF Referrals: David Antonio MD [Physician] - Kellee Grace DO [Primary Care Provider] - Stand Alone Forms: Patient Portal/API
[2023-10-01 20:59] LABS: Alanine Aminotransferase 33 IU/L (<35); Albumin Globulin Ratio 1.7 (1.0-2.8); Alkaline Phosphatase 99 U/L (38-126); Aspartate Aminotransferase 34 IU/L (14-36); BUN Creatinine Ratio 19.1 (6-22); Bilirubin Total 0.7 mg/dL (0.2-1.3); Blood Urea Nitrogen 21 mg/dL (7-17); Calcium 10.1 mg/dL (8.4-10.2); Carbon Dioxide 29 mmol/L (22-32); Chloride 106 mmol/L (98-107); Estimated Glomerular Filt Rate 56 mL/min (>60); Glucose 115 mg/dL (80-110); HEMOLYSIS < 15 (0-50); Lipase 154 U/L (23-300); Potassium 3.8 mmol/L (3.4-5.1); Sodium 139 mmol/L (137-145)
[2023-10-01] MEDS: KETOROLAC 30 MG/ML VIAL IV (21:23)
[2023-10-01 21:26] VITALS: BP 178/113
[2023-10-01 21:27] VITALS: PULSE 92; RESP 19; O2SAT 98
[2023-10-01 21:32] LABS: Amorphous Sediment Urine 2+; Bacteria Urine None Seen; Mucus Urine 2+ (Negative); RBC Urine 1-5/HPF (0-5/HPF); Squamous Epithelial Cell Urine 1-5 /HPF (0-5/HPF); Urine Volume 10mL (spun); WBC Urine None Seen (0-5/HPF)
[2023-10-01 21:33] LABS: Culture Indicated Urine Cult Not Indicated
[2023-10-01] MEDS: ONDANSETRON 4 MG/2 ML INJ IV (21:41)
[2023-10-01 21:59] VITALS: O2SAT 100
[2023-10-01 22:00] VITALS: BP 167/87; PULSE 84; RESP 18; O2SAT 98
[2023-10-01] MEDS: HYDROCODONE/ACET 5/325 PREPACK 1 BOTTLE MISC (22:00)
== END 2023-10-01 22:09 | disposition home or self-care (01) ==
PROVIDERS: Emergency Provider Emergency Medicine; PCP Family Medicine
DX: N20.0 Calculus of kidney (principal); R11.2 Nausea with vomiting, unspecified
CPT/HCPCS: 36415; 74177; 80053; 81003; 81015; 83690; 85025; 93005; 96374; 96375; 99284; J1885; J2405; Q9967

== ENCOUNTER → 2023-10-17 14:11 | Outpatient (CLI) | payer MEDICARE, MEDICAID, SELFPAY | PROVIDERS: PCP Family Medicine; Visit Provider Urology | DX: R39.9 Unspecified symptoms and signs involving the genitourinary system (principal); N20.1 Calculus of ureter; R82.81 Pyuria; Z68.37 Body mass index [BMI] 37.0-37.9, adult | CPT/HCPCS: 51798; 81002; 87086; 99213 ==

== ENCOUNTER → 2023-10-26 13:55 | Outpatient (CLI) | payer MEDICARE, MEDICAID, SELFPAY ==
--- NOTE | 2023-10-26 13:57 | DI.CT.S_ITS ---
PROCEDURE: CT PEL WO CON INDICATIONS: Evaluate distal ureteral stone TECHNIQUE: After the administration of oral contrast, 5 mm thick sections acquired from the iliac crests to the symphysis. 5 mm coronal and sagittal reformats were then performed. For radiation dose reduction, the following was used: automated exposure control, adjustment of mA and/or kV according to patient size. COMPARISON: [facility], CT, CT CHEST ABD PEL W CON, 02/06/2023, 12:23. [facility], CT, CT CHEST ABD PEL W CON, 08/02/2020, 12:17. [facility], CT, CT ABDOMEN PELVIS W CON, 10/01/2023, 21:04. FINDINGS: Image quality: Diagnostic. PELVIS: Peritoneum and Bowel: Nonobstructive bowel. Extensive sigmoid diverticulosis with mildly Denise increased betty diverticular inflammation (2/, , 4/51). No fluid collection or free air. Pelvic Organs: Hysterectomy. No CT evidence of an adnexal mass. Ureters and Bladder: Compared to CT dated October 01, 2023, previously seen stone at the right UVJ is no longer seen. No visualized hydroureter bilaterally. Normal wall thickness, accounting for underdistension. No perivesicular fat stranding. Pelvic Nodes: Similar appearance of enlarged right inguinal lymph node measuring 1.1 cm in short axis (2/39), previously 1.2 cm (2/116) on February 06, 2023, remotely 0.8 cm in short axis (2/118) on CT dated August 02, 2020. Miscellaneous: Tiny fat containing umbilical hernia. No inguinal hernia bilaterally. Minimal calcification of the infrarenal abdominal aorta. Bones: No aggressive osseous abnormality. No acute fracture. Mild degenerative changes of the lower lumbar spine and bilateral hips. IMPRESSION: 1. Compared to CT dated October 01, 2023, previously seen stone at the right UVJ is no longer seen. No visualized hydroureter bilaterally. 2. Normal appearance of the bladder, accounting for under distention. 3. Acute, uncomplicated mild sigmoid diverticulitis. No fluid collection or free air. 4. Similar appearance of enlarged right inguinal lymph node measuring 1.1 cm in short axis, previously 1.2 cm on February 06, 2023, and remotely 0.8 cm in short axis on CT dated August 02, 2020 which is indeterminate. Dictated by: Gabriela Colin M.D. on 10/27/2023 at 8:14 Approved by: Gabriela Colin M.D. on 10/27/2023 at 8:36
== END ==
PROVIDERS: PCP Family Medicine; Referring Provider Urology; Visit Provider Urology
DX: N20.1 Calculus of ureter (principal); K57.32 Diverticulitis of large intestine without perforation or abscess without bleeding; R59.0 Localized enlarged lymph nodes; Z90.710 Acquired absence of both cervix and uterus
CPT/HCPCS: 72192

== ENCOUNTER → 2023-10-29 17:32 | Outpatient (CLI) | payer MEDICARE, MEDICAID, SELFPAY ==
[2023-10-29 18:25] LABS: Appearance Urine UA CLEAR; Bilirubin Urine UA NEGATIVE (NEGATIVE); Color Urine UA YELLOW; Glucose Urine UA NEGATIVE (Negative); Ketones Urine UA NEGATIVE (NEGATIVE); Leukocyte Esterase Urine UA NEGATIVE (NEGATIVE); Nitrite Urine UA NEGATIVE (Negative); Occult Blood Urine UA NEGATIVE (Negative); Protein Urine UA NEGATIVE (Negative); Urobilinogen Urine UA 0.2 E.U./dL (0.2)
[2023-10-29 18:34] LABS: Bacteria Urine Occasional (0-1); Culture Indicated Urine Specimen Cultured; Mucus Urine 1+ (Negative); RBC Urine 0-1/HPF (0-5/HPF); Squamous Epithelial Cell Urine 1-5 /HPF (0-5/HPF); Urine Volume 10mL (spun); WBC Urine 0-1/HPF (0-5/HPF)
== END ==
PROVIDERS: PCP Family Medicine; Referring Provider Urology; Visit Provider Urology
DX: N20.1 Calculus of ureter (principal); R82.81 Pyuria
CPT/HCPCS: 81001; 87086

== ENCOUNTER → 2024-03-19 13:01 | Outpatient (CLI) | payer MEDICARE, MEDICAID, SELFPAY ==
--- NOTE | 2024-03-19 13:03 | DI.CT.S_ITS ---
PROCEDURE: CT CHEST ABD PEL W CON INDICATIONS: ENDOMETRIAL CANCER TECHNIQUE: After the administration of intravenous contrast, 5 mm thick sections acquired from the lung apices to the symphysis. 5 mm coronal and sagittal reformats were performed, with additional 7 mm MIP reformats through the lungs. For radiation dose reduction, the following was used: automated exposure control, adjustment of mA and/or kV according to patient size. COMPARISON: [facility], CT, CT PEL WO CON, 10/26/2023, 14:06. CT, CT ABDOMEN PELVIS W CON, 10/01/2023, 21:04. [facility], CT, CT CHEST ABD PEL W CON, 02/06/2023, 12:23. FINDINGS: Image quality: Excellent. CHEST: Lower Neck: No enlarged lymph nodes. Thyroid: Not well seen. Axillae: No enlarged lymph nodes. Chest Wall: 3.3 cm breast mass on the left, stable. Lungs and Pleura: No pneumothorax or pleural effusions. Previous scattered punctate nodules demonstrate no appreciable change. Heart: Heart size is normal. No pericardial effusion. Thoracic Vessels: The aorta and pulmonary arteries demonstrate normal size. Mediastinum and Estephania: No enlarged lymph nodes. Esophagus: No wall thickening. Minimal hiatal hernia. ABDOMEN: Liver: No solid mass. Steatosis. Gallbladder: Dependent luminal stone without wall thickening. Biliary ducts: No biliary dilation. Pancreas: No ductal dilation. Spleen: Size is within normal limits. Adrenal Glands: No adrenal nodules. Kidneys and Ureters: Resolved previous hydroureter/ hydronephrosis. No solid mass. No complex renal cystic lesion which requires follow up. Stomach and Bowel: Normal colonic caliber, without significant wall thickening. Diverticulosis. Peritoneum: No abnormal intraperitoneal fluid. No free air. Ventral Wall: Fat containing right lateral abdominal wall hernia. Abdominal Nodes: No retroperitoneal or mesenteric adenopathy by size criteria. Vessels: Aorta and inferior vena cava are normal in size. PELVIS: Pelvic Organs: Unremarkable. Bladder: No bladder wall thickening, accounting for underdistention. Pelvic Nodes: No enlarged lymph nodes. Previous right inguinal lymph node now measures 0.9 cm compared to 1.3 cm. Miscellaneous: No inguinal hernias are seen. Bones: No aggressive osseous abnormality. IMPRESSION: Interval resolution of previous hydronephrosis/hydroureter. Stable punctate pulmonary nodules. Decreased size right inguinal node. Unchanged appearance of left breast mass. Diverticulosis. Dictated by: Allison Tovar M.D. on 03/19/2024 at 21:27 Approved by: Allison Tovar M.D. on 03/19/2024 at 21:32
--- NOTE | 2024-03-19 13:04 | DI.MG.S_ITS ---
BILATERAL DIGITAL SCREENING MAMMOGRAM 3D/2D WITH CAD POST LUMPECTOMY: 03/19/2024 CLINICAL: Routine screening. Personal history of left breast cancer. Comparison is made to exams dated: 03/05/2023 mammogram, 03/01/2022 mammogram, and 02/28/2021 mammogram - [facility]. There are scattered areas of fibroglandular density (category b / 25%-50% glandular tissue). Current study was also evaluated with a Computer Aided Detection (CAD) system. There are benign post operative findings in both breasts. No significant masses, calcifications, or other findings are seen in either breast. There has been no significant interval change. IMPRESSION: BENIGN There is no mammographic evidence of malignancy. A 1 year screening mammogram is recommended. This exam was interpreted at Station ID: [id number]. NOTE: For mammograms, a report in lay terms will be sent to the patient. Approximately 15% of breast malignancies will not be visualized mammographically. In the management of a palpable breast mass, a negative mammogram must not discourage biopsy of a clinically suspicious lesion. Electronically Signed By: Louisa vasquez/maria dolores:03/19/2024 16:55:20 letter sent: Normal Exam ACR BI-RADS Category 2: Benign
[2024-03-19 13:36] LABS: Estimated Glomerular Filt Rate > 60 mL/min (>60)
== END ==
PROVIDERS: Radiology Diagnostic Radiology; PCP Family Medicine; Referring Provider Internal Medicine Hematology & Oncology; Visit Provider Internal Medicine Hematology & Oncology
DX: Z12.31 Encounter for screening mammogram for malignant neoplasm of breast (principal); C50.512 Malignant neoplasm of lower-outer quadrant of left female breast; Z17.0 Estrogen receptor positive status [ER+]; C54.1 Malignant neoplasm of endometrium; R91.8 Other nonspecific abnormal finding of lung field; K57.90 Diverticulosis of intestine, part unspecified, without perforation or abscess without bleeding; R59.0 Localized enlarged lymph nodes; K43.9 Ventral hernia without obstruction or gangrene
CPT/HCPCS: 36415; 71260; 74177; 77063; 77067; 82565; Q9967

== ENCOUNTER → 2024-03-27 16:28 | Outpatient (CLI) | payer MEDICARE, MEDICAID, SELFPAY ==
[2024-03-27 18:33] LABS: Add Manual Diff / Slide Review NO; Basophils Absolute Auto 0 /uL (0-100); Basophils Percent Auto 0.5 % (0-2); Eosinophils Absolute Auto 100 /uL (0-450); Eosinophils Percent Auto 1.1 % (2-4); Hematocrit 42.6 % (36-46); Hemoglobin 14.6 g/dL (12.0-16.0); Lymphocytes Absolute Auto 1400 /uL (1100-4500); Lymphocytes Percent Auto 20.1 % (25-40); Mean Corpuscular HGB Conc 34.3 % (30-36); Mean Corpuscular Hemoglobin 31.2 PG (26-34); Mean Corpuscular Volume 91.1 fL (80-100); Monocytes Absolute Auto 500 /uL (0-900); Monocytes Percent Auto 7.6 % (3-14); Neutrophils Absolute Auto 4800 /uL (1500-7000); Neutrophils Percent Auto 70.7 % (50-75); Platelet Count 203 X10^3/uL (150-400); Red Blood Cell Count 4.68 X10^6/uL (4.0-5.2); Red Cell Distribution Width 12.5 % (11.6-14.8); White Blood Cell Count 6.7 X10^3/uL (4.5-11.0)
[2024-03-27 19:11] LABS: Alanine Aminotransferase 27 IU/L (<35); Albumin 4.4 g/dL (3.5-5.0); Albumin Globulin Ratio 1.6 (1.0-2.8); Alkaline Phosphatase 89 U/L (38-126); Aspartate Aminotransferase 27 IU/L (14-36); BUN Creatinine Ratio 22.8 (6-22); Bilirubin Total 0.6 mg/dL (0.2-1.3); Blood Urea Nitrogen 21 mg/dL (7-17); Calcium 10.5 mg/dL (8.4-10.2); Carbon Dioxide 31 mmol/L (22-32); Chloride 103 mmol/L (98-107); Estimated Glomerular Filt Rate > 60 mL/min (>60); Globulin 2.7 g/dL (1.7-4.1); Glucose 83 mg/dL (80-110); HEMOLYSIS < 15 (0-50); Potassium 4.8 mmol/L (3.4-5.1); Sodium 138 mmol/L (137-145); Total Protein 7.1 g/dL (6.3-8.2)
== END ==
PROVIDERS: PCP Family Medicine; Referring Provider Nurse Practitioner Gerontology; Visit Provider Nurse Practitioner Gerontology
DX: C50.512 Malignant neoplasm of lower-outer quadrant of left female breast (principal); C54.1 Malignant neoplasm of endometrium; Z17.0 Estrogen receptor positive status [ER+]
CPT/HCPCS: 36415; 80053; 85025; 86300

== ENCOUNTER → 2024-07-14 13:36 | Outpatient (CLI) | payer MEDICARE, MEDICAID, SELFPAY ==
--- NOTE | 2024-07-14 | DI.MG.S_ITS ---
UNILATERAL LEFT DIGITAL DIAGNOSTIC MAMMOGRAM 3D/2D POST LUMPECTOMY: 07/14/2024 CLINICAL: Breast lump. Comparison is made to exams dated: 03/19/2024 mammogram, 03/05/2023 mammogram, 03/01/2022 mammogram, and 02/28/2021 mammogram - [facility]. There are scattered areas of fibroglandular density (category b / 25%-50% glandular tissue). No significant masses, calcifications, or other findings are seen in the breast. Stable appearing postoperative findings. IMPRESSION: INCOMPLETE: NEED ADDITIONAL IMAGING EVALUATION No mammographic evidence of malignancy. Stable appearing postoperative findings. A targeted ultrasound is recommended and will immediately follow. This exam was interpreted at Station ID: [id number]. NOTE: For mammograms, a report in lay terms will be sent to the patient. Approximately 15% of breast malignancies will not be visualized mammographically. In the management of a palpable breast mass, a negative mammogram must not discourage biopsy of a clinically suspicious lesion. Electronically Signed By: Mu Guevara M.D. [facility] [place]/:07/14/2024 14:20:22 letter sent: Additional Imaging Needed ACR BI-RADS Category 0: Incomplete: Need Additional Imaging Evaluation
--- NOTE | 2024-07-14 | DI.US.S_ITS ---
LIMITED ULTRASOUND OF LEFT BREAST: 07/14/2024 CLINICAL: Palpable left breast lump. Comparison is made to exams dated: 07/14/2024 mammogram, 03/19/2024 mammogram, 03/05/2023 mammogram, 03/01/2022 mammogram, 02/28/2021 mammogram, and 02/15/[address] [facility] Chest, abdomen, and pelvis 03/19/2024, 02/28/2021. Color flow and real-time ultrasound of the left breast 5 o'clock region were performed. Webster scale images of the real-time examination were reviewed. Left breast 5:00 region 6 cm from the nipple, lumpectomy site is similar to ultrasound from 02/15/2020. The area also appears similar on prior CTs. No suspicious blood flow or mass is identified. IMPRESSION: BENIGN There is no sonographic evidence of malignancy. No suspicious blood flow or mass is identified. Left breast lumpectomy site appears similar. A 1 year screening mammogram is recommended. 03/20/2025 If concerned for occult malignancy, breast MRI or PET/CT could be considered. Exam findings were conveyed to the patient. Patient is advised to monitor for significant change. Clinical follow-up as needed. This exam was interpreted at Station ID: [id number]. Electronically Signed By: Mu Guevara M.D. [facility] [place]/:07/14/2024 14:55:36 letter sent: Normal Exam ACR BI-RADS Category 2: Benign
== END ==
LOC: MAMMO 13:37
PROVIDERS: PCP Family Medicine; Referring Provider Nurse Practitioner Gerontology; Visit Provider Nurse Practitioner Gerontology
DX: N63.21 Unspecified lump in the left breast, upper outer quadrant (principal); Z98.890 Other specified postprocedural states
CPT/HCPCS: 76642; 77065; G0279

== ENCOUNTER → 2024-08-11 13:56 | Outpatient (CLI) | payer MEDICARE, MEDICAID, SELFPAY ==
--- NOTE | 2024-08-11 13:57 | DI.RAD.S_ITS ---
PROCEDURE: XR DEXA AXIAL SKELETON INDICATIONS: Osteoporosis screening COMPARISON: [facility], , XR DEXA AXIAL SKELETON, 02/15/2020, 14:44. FINDINGS: Lumbar Spine: Bone mineral density 0.850 g/cm2, T score -1.8, compared to -1.9. Left Femoral Neck: Bone mineral density 0.688 g/cm2, T score -1.4, compared to -1.0. Left Hip: Bone mineral density 0.858 g/cm2, T score -0.7, compared to -0.3. Fracture Risk Calculation (when applicable): 10-year fracture risk of a major osteoporotic fracture 15 percent and of a hip fracture 0.7 percent. (T score greater or equal to -1.0 to: NORMAL) (T score from -1.1 to -2.4: OSTEOPENIA) (T score less than or equal to -2.5: OSTEOPOROSIS) IMPRESSION: Osteopenia within the lumbar spine and femoral neck slightly progressive in the latter. Follow-up guidelines as follows: Osteoporosis: Consider a repeat DEXA and Vertebral Fracture Assessment (VFA) exam in 2 years or sooner if medically necessary, to reassess this patient's status. Osteopenia: Consider a repeat DEXA in 2-3 years to reassess this patient's status, or if there is a new clinical indication. Normal: Consider a repeat DEXA in 5 years or sooner, or if there is a new clinical indication. All treatment decisions require clinical judgment and consideration of individual patient factors, including patient preferences, comorbidities, previous drug use, risk factors not captured in the FRAX model (e.g., frailty, falls, vitamin D deficiency, increased bone turnover, interval significant decline in bone density ) and possible under- or over-estimation of fracture risk by FRAX. In addition, the NOF Guide recommends that FDA-approved medical therapies be considered in postmenopausal women and men age >= 50 years with a: * Hip or vertebral (clinical or morphometric) fracture * T-score of <=-2.5 at the spine or hip * Ten-year fracture probability by FRAX of >= 3% for hip fracture or >=20% for major osteoporotic fracture. Dictated by: Allison Tovar M.D. on 08/11/2024 at 16:56 Approved by: Allison Tovar M.D. on 08/11/2024 at 16:57
== END ==
PROVIDERS: PCP Family Medicine; Referring Provider Family Medicine; Visit Provider Family Medicine
DX: M85.89 Other specified disorders of bone density and structure, multiple sites (principal); Z78.0 Asymptomatic menopausal state
CPT/HCPCS: 77080

== ENCOUNTER → 2024-08-19 15:25 | Outpatient (CLI) | payer MEDICARE, MEDICAID, SELFPAY ==
[2024-08-19 16:14] LABS: Cholesterol 165 mg/dL (140-199); HDL Cholesterol 52 mg/dL (40-60); LDL Cholesterol Calculated 88 mg/dL (<100); Triglycerides 127 mg/dL (35-150)
[2024-08-19 16:40] LABS: Thyroid Stimulating Hormone 0.496 uIU/mL (0.47-4.68)
== END ==
PROVIDERS: PCP Family Medicine; Referring Provider Family Medicine; Visit Provider Family Medicine
DX: Z13.1 Encounter for screening for diabetes mellitus (principal); E03.9 Hypothyroidism, unspecified; E78.5 Hyperlipidemia, unspecified
CPT/HCPCS: 36415; 80061; 83036; 84443

== ENCOUNTER → 2024-08-21 11:10 | Outpatient (CLI) | payer MEDICARE, MEDICAID, SELFPAY ==
[2024-08-21 11:47] LABS: Creatinine Urine Random 129.07 mg/dL
[2024-08-21 11:52] LABS: Microalbumin Urine Random < 0.6 mg/dL (0-1.6)
== END ==
PROVIDERS: PCP Family Medicine; Referring Provider Family Medicine; Visit Provider Family Medicine
DX: R80.9 Proteinuria, unspecified (principal)
CPT/HCPCS: 82043; 82570

== ENCOUNTER → 2024-12-24 15:47 | Outpatient (CLI) | payer MEDICARE, MEDICAID, SELFPAY ==
[2024-12-24 17:16] LABS: Add Manual Diff / Slide Review NO; Hematocrit 43.0 % (36-46); Hemoglobin 14.4 g/dL (12.0-16.0); Lymphocytes Absolute Auto 1700 /uL (1100-4500); Mean Corpuscular HGB Conc 33.6 % (30-36); Mean Corpuscular Hemoglobin 30.5 PG (26-34); Mean Corpuscular Volume 91.0 fL (80-100); Platelet Count 200 X10^3/uL (150-400)
[2024-12-24 17:48] LABS: Alanine Aminotransferase 33 IU/L (<35); Albumin 4.5 g/dL (3.5-5.0); Albumin Globulin Ratio 1.7 (1.0-2.8); Alkaline Phosphatase 87 U/L (38-126); Blood Urea Nitrogen 20 mg/dL (7-17); Calcium 10.2 mg/dL (8.4-10.2); Carbon Dioxide 30 mmol/L (22-32); Chloride 103 mmol/L (98-107); Estimated Glomerular Filt Rate > 60 mL/min (>60); Globulin 2.7 g/dL (1.7-4.1); Glucose 81 mg/dL (70-99); HEMOLYSIS < 15 (0-50); Potassium 4.3 mmol/L (3.4-5.1); Sodium 140 mmol/L (137-145); Total Protein 7.2 g/dL (6.3-8.2)
== END ==
PROVIDERS: PCP Family Medicine; Referring Provider Internal Medicine Hematology & Oncology; Visit Provider Internal Medicine Hematology & Oncology
DX: C50.512 Malignant neoplasm of lower-outer quadrant of left female breast (principal); C54.1 Malignant neoplasm of endometrium; Z17.0 Estrogen receptor positive status [ER+]
CPT/HCPCS: 36415; 80053; 85025; 86300

== ENCOUNTER → 2025-03-26 11:28 | Outpatient (CLI) | payer MEDICARE, MEDICAID, SELFPAY ==
--- NOTE | 2025-03-26 11:36 | DI.MG.S_ITS ---
MM screening mammo BI: 03/26/2025. BI-RADS: 2 CLINICAL: 65-year old female for bilateral screening mammogram. No Tyrer-Cuzick risk score calculation due to the patient's personal history of breast cancer. Patient reports a history of left breast carcinoma diagnosed at age 58. Status-post left lumpectomy with radiation therapy and chemotherapy. No first-degree family history of breast cancer. Current reported family history of breast cancer: maternal grandmother. The patient reports testing negative for BRCA gene mutation. The patient had a prior left breast biopsy. PRIOR EXAMS 07/14/2024, 03/19/2024, 03/05/2023, 03/01/2022. MAMMOGRAPHY TECHNIQUE: 2D and 3D (tomosynthesis) digital mammographic views obtained, with additional images as needed for full coverage. Current study was also evaluated with a Computer Aided Detection (CAD) system. DENSITY B. There are scattered areas of fibroglandular density. MAMMOGRAPHY FINDINGS Right: No suspicious mass, asymmetry, microcalcification, or other abnormality seen. Left: Surgical clips present on the left. Benign-appearing post-surgical changes noted on the left. There are no suspicious masses, calcifications, or other findings in the breast. IMPRESSION: Right * No evidence of malignancy. Left * No evidence of malignancy with benign findings. RECOMMENDATIONS Bilateral * Annual screening mammography. OVERALL ASSESSMENT CATEGORY BI-RADS-2: Benign. The [employer] recommends annual screening mammography beginning at age 40 for women with average risk of breast cancer. ELECTRONICALLY SIGNED: Thaddeus Montelongo M.D. on 03/26/2025 at 11:29:12 PM PT Interpreting Station ID: [id number]
--- NOTE | 2025-03-26 11:36 | DI.CT.S_ITS ---
PROCEDURE: CT CHEST ABD PEL W CON INDICATIONS: screening TECHNIQUE: After the administration of intravenous contrast, 5 mm thick sections acquired from the lung apices to the symphysis. 5 mm coronal and sagittal reformats were performed, with additional 7 mm MIP reformats through the lungs. For radiation dose reduction, the following was used: automated exposure control, adjustment of mA and/or kV according to patient size. COMPARISON: [facility], CT, CT CHEST ABD PEL W CON, 03/19/2024, 14:46. FINDINGS: Image quality: Excellent. CHEST: Lower Neck: No enlarged lymph nodes. Thyroid: No thyroid nodules which require sonographic follow up, per consensus guidelines. Axillae: No enlarged lymph nodes. Chest Wall: Stable appearance of the left breast mass measuring up to 3.2 cm Lungs and Pleura: No pneumothorax or pleural effusions. Stable appearance of a 4 millimeter solid nodule in the right middle lobe as well as left lower lobe micro nodules. No new focal lesion seen Heart: Heart size is normal. No pericardial effusion. Thoracic Vessels: The aorta and pulmonary arteries demonstrate normal size. Mediastinum and Estephania: No enlarged lymph nodes. Esophagus: No wall thickening. No hiatal hernia. ABDOMEN: Liver: No solid mass. Gallbladder: Small calculi in the gallbladder. No dilatation or inflammatory changes. Biliary ducts: No biliary dilation. Pancreas: No ductal dilation. Spleen: Size is within normal limits. Adrenal Glands: No adrenal nodules. Kidneys and Ureters: No hydronephrosis. No solid mass. No complex renal cystic lesion which requires follow up. Stomach and Bowel: Normal colonic caliber, without significant wall thickening. Peritoneum: No abnormal intraperitoneal fluid. No free air. Ventral Wall: No significant ventral hernia. Abdominal Nodes: No retroperitoneal or mesenteric adenopathy by size criteria. Vessels: Aorta and inferior vena cava are normal in size. PELVIS: Pelvic Organs: Status post hysterectomy. No adnexal mass seen. Bladder: No bladder wall thickening, accounting for underdistention. Pelvic Nodes: Stable small bilateral pelvic and inguinal nodes. No new adenopathy seen. Miscellaneous: No inguinal hernias are seen. Bones: No aggressive osseous abnormality. IMPRESSION: 1. No new suspicious focal lesion seen to suggest tumor recurrence or metastasis. 2. Stable appearance of sub 6 millimeter lung nodules as well as of the left breast lesion, likely benign. Dictated by: Nam Fu M.D. on 03/26/2025 at 16:54 Approved by: Nam Fu M.D. on 03/26/2025 at 17:06
[2025-03-26 12:33] LABS: Add Manual Diff / Slide Review NO; Hematocrit 40.3 % (36-46); Hemoglobin 13.7 g/dL (12.0-16.0); Lymphocytes Absolute Auto 1500 /uL (1100-4500); Mean Corpuscular HGB Conc 34.1 % (30-36); Mean Corpuscular Hemoglobin 30.6 PG (26-34); Mean Corpuscular Volume 89.7 fL (80-100); Platelet Count 198 X10^3/uL (150-400)
[2025-03-26 12:46] LABS: Alanine Aminotransferase 30 IU/L (<35); Albumin 4.6 g/dL (3.5-5.0); Albumin Globulin Ratio 1.5 (1.0-2.8); Alkaline Phosphatase 87 U/L (38-126); Blood Urea Nitrogen 23 mg/dL (7-17); Calcium 9.7 mg/dL (8.4-10.2); Carbon Dioxide 26 mmol/L (22-32); Chloride 106 mmol/L (98-107); Estimated Glomerular Filt Rate > 60 mL/min (>60); Globulin 3.0 g/dL (1.7-4.1); Glucose 107 mg/dL (70-99); HEMOLYSIS 22 (0-50); Potassium 4.6 mmol/L (3.4-5.1); Sodium 141 mmol/L (137-145); Total Protein 7.6 g/dL (6.3-8.2)
== END ==
PROVIDERS: PCP Family Medicine; Referring Provider Internal Medicine Hematology & Oncology; Visit Provider Internal Medicine Hematology & Oncology
DX: Z12.31 Encounter for screening mammogram for malignant neoplasm of breast (principal); R91.8 Other nonspecific abnormal finding of lung field; N63.20 Unspecified lump in the left breast, unspecified quadrant; Z85.3 Personal history of malignant neoplasm of breast; Z80.3 Family history of malignant neoplasm of breast; R91.1 Solitary pulmonary nodule; Z90.710 Acquired absence of both cervix and uterus
CPT/HCPCS: 36415; 71260; 74177; 77063; 77067; 80053; 85025; 86300; Q9967